=== PATIENT | female | born 1960 | race Caucasian/White ===

== ENCOUNTER 2016-07-06 09:07 | Inpatient (IN) | payer BC ==
[2016-07-06] VITALS (22 sets, daily range): BP systolic 79–115; BP diastolic 51–77; PULSE 66–112; TEMP 36.8–36.9; O2SAT 99–100; Ht 170.2 cm; Wt 79.5 kg
[~2016-07-06] VITALS: Ht 170.2 cm; Wt 79.5 kg
[~2016-07-06 09:07] MED LIST: CALC500T83 PO; CHOL1000 PO; MULT-506 PO; TAMO20TA47 PO
[2016-07-06] MEDS ORDERED: LORAZEPAM 1 MG TAB SL STA (09:23)
[2016-07-06 09:49] LABS: BASO % 0.8 %; BASO ABS # 0.06 K/uL (0-0.2); COMPLETE YES; EOS % 25.2 %; HEMATOCRIT 35.2 % (37-47); IG% 0.1 %; LYMPH % 34.5 %; LYMPH ABS # 2.45 K/uL (1.2-3.4); MEAN CELL VOLUME 87.1 fL (80-100); MEAN CORPUSCULAR HEMOGLOBIN 29.7 pg (25-34); MEAN CORPUSCULAR HGB CONC 34.1 g/dl (32-36); MEAN PLATELET VOLUME 9.3 fL (7.4-10.4); MONO % 4.1 %; NEUT % 35.3 %; PLATELET COUNT 303 K/uL (130-400); RED BLOOD COUNT 4.04 M/uL (4.2-5.4)
[2016-07-06 10:05] LABS: INR 0.9 (0.9-1.1)
[2016-07-06 10:07] LABS: BUN/CREATININE RATIO 13.4 (10-20); CALCIUM 9.5 mg/dl (8.5-10.1); CREATININE 0.58 mg/dl (0.60-1.20)
[2016-07-06 10:10] LABS: ALB/GLOB RATIO 0.9 (0.9-2)
--- NOTE | 2016-07-06 10:12 | EMERGENCY ROOM VISIT NOTE ---
History Report prepared by Lissethibdelphine: Daniel Stratton Under the Supervision of: Dr. Lazarus Fontenot M.D. First contact with patient: 09:23 Chief Complaint: VAGINAL BLEEDING Stated Complaint: BLOOD RUNNING FROM VAGINA History of Present Illness The patient is a 55 year old female who presents to the Emergency Room with complaints of persistent vaginal bleeding starting about an hour ago. She has soaked 2 towels in the past hour. She was sitting down and working on a computer when she had a sudden onset of her symptoms. The patient currently denies any pain. She had a hysterectomy 2 weeks ago. The patient currently denies chest pain, shortness of breath, abdominal pain, or any other complaints. Source of History: patient Onset: about an hour ago Position: other (global) Symptom Intensity: No pain currently Quality: other (vaginal bleeding) Timing: other (persistent) Associated Symptoms: No SOB, No abdominal pain, No chest pain Review of Systems See HPI for pertinent positives & negatives. A total of 10 systems reviewed and were otherwise negative. Past Medical & Surgical Medical Problems: (1) Breast cancer (2) Malignant neoplasm of breast (3) Obesity (4) Pseudocholinesterase deficiency Surgical Problems: (1) H/O breast surgery (2) H/O sinus surgery (3) H/O: hysterectomy (4) History of lumpectomy of right breast (5) S/P RUCHI-BSO (6) S/P total knee replacement Family History Patient reports no known family medical history. Social History Smoking Status: Never Smoker Marital Status: Occupation Status: employed Current/Historical Medications Scheduled Calcium (Calcium), 500 MG PO QAM Cholecalciferol (Vitamin D3), 1,000 UNITS PO QAM Ciprofloxacin (Ciprofloxacin HCl), 1 TAB PO Q6H Multivitamin (Multivitamin), 1 TAB PO QAM Tamoxifen (Nolvadex), 20 MG PO QAM Allergies Coded Allergies: Bee Venom (Verified Allergy, Unknown, ANAPHYLACITC RESPONSE, 07/06/16) Amoxicillin (Verified Adverse Reaction, Unknown, NAUSEA, 07/06/16) Clavulanic Acid (Verified Adverse Reaction, Unknown, NAUSEA, 07/06/16) Physical Exam Vital Signs Date Time Temp Pulse Resp B/P Pulse Ox O2 Delivery O2 Flow Rate FiO2 07/06/16 13:00 88 16 123/80 100 07/06/16 11:21 88 16 123/80 100 Room Air 07/06/16 09:29 100 Room Air 07/06/16 09:14 36.5 96 18 141/89 100 Room Air Physical Exam GENERAL: Patient is a healthy-appearing well-nourished HEAD: Normocephalic atraumatic EYES: Ocular movements intact pupils equal and react to light OROPHARYNX mucous membranes are moist no exudates present no erythema or edema present NECK: Supple no nuchal rigidity CHEST: Good equal expansion LUNGS: Clear and equal to auscultation CARDIAC: Normal S1 and S2 ABDOMEN: Soft nontender no guarding BACK: No CVA tenderness PELVIC EXAM: Large amount of blood in the vaginal vault EXTREMITIES: No pain upon palpation normal muscle strength in all groups no clubbing cyanosis or edema NEURO: Patient is following commands is answering questions appropriately. Alert and oriented x3 Cranial Nerves 2-12 grossly intact Medical Decision & Procedures Laboratory Results Test 07/06/16 09:25 07/06/16 15:37 Immature Granulocyte % (Auto) 0.1 % White Blood Count 7.10 K/uL (4.8-10.8) Red Blood Count 4.04 M/uL (4.2-5.4) Hemoglobin 12.0 g/dL (12.0-16.0) Hematocrit 35.2 % (37-47) Mean Corpuscular Volume 87.1 fL (80-100) Mean Corpuscular Hemoglobin 29.7 pg (25-34) Mean Corpuscular Hemoglobin Concent 34.1 g/dl (32-36) Platelet Count 303 K/uL (130-400) Mean Platelet Volume 9.3 fL (7.4-10.4) Neutrophils (%) (Auto) 35.3 % Lymphocytes (%) (Auto) 34.5 % Monocytes (%) (Auto) 4.1 % Eosinophils (%) (Auto) 25.2 % Basophils (%) (Auto) 0.8 % Neutrophils # (Auto) 2.50 K/uL (1.4-6.5) Lymphocytes # (Auto) 2.45 K/uL (1.2-3.4) Monocytes # (Auto) 0.29 K/uL (0.11-0.59) Eosinophils # (Auto) 1.79 K/uL (0-0.5) Basophils # (Auto) 0.06 K/uL (0-0.2) Immature Granulocyte # (Auto) 0.01 K/uL (0.00-0.02) Prothrombin Time 10.0 SECONDS (9.0-12.0) Prothromb Time International Ratio 0.9 (0.9-1.1) Activated Partial Thromboplast Time 26.4 SECONDS (21.0-31.0) Partial Thromboplastin Ratio 1.0 Total Bilirubin 0.2 mg/dl (0.2-1) Aspartate Amino Transf (AST/SGOT) 24 U/L (15-37) Alanine Aminotransferase (ALT/SGPT) 54 U/L (12-78) Alkaline Phosphatase 60 U/L (45-117) Total Protein 7.0 gm/dl (6.4-8.2) Albumin 3.3 gm/dl (3.4-5.0) Globulin 3.7 gm/dl (2.5-4.0) Albumin/Globulin Ratio 0.9 (0.9-2) Bedside Hemoglobin 10.9 g/dl (12.0-16.0) Bedside Hematocrit 32 % (37-47) Bedside Sodium 141 mEq/L (135-144) Bedside Potassium 4.3 mEq/L (3.3-5.0) Bedside Chloride 104 mEq/L (101-112) Bedside Total CO2 26 mEq/l (24-31) Bedside Blood Urea Nitrogen 6 mg/dl (7-18) Bedside Creatinine 0.4 mg/dl (0.6-1.3) Bedside Glucose (other) 150 mg/dl (70-99) Bedside Ionized Calcium (Gopi) 1.30 mmol/l (1.12-1.32) Labs reviewed by ED physician. Medications Administered Medications (Trade) Dose Ordered Sig/Leonela Route Start Time Stop Time Status Last Admin Dose Admin Lorazepam (Ativan Tab) 1 mg NOW STAT SL 07/06/16 09:23 07/06/16 09:25 DC 07/06/16 09:27 1 MG Fentanyl Citrate (Fentanyl Inj) 50 mcg Q5M PRN IV 07/06/16 13:00 07/06/16 18:01 DC 07/06/16 16:55 100 MCG ED Course 922: Past medical records reviewed. The patient was evaluated in room B12B. A complete history and physical examination was performed. Ativan Tab 1 mg SL 1019: I discussed the patient's case with Dr. Prince, OB-BUILDER'S LABOURER with [facility]. She will evaluate the patient and give me her recommendations. 1041: Upon reexamination the patient is resting comfortably. I discussed results and treatment plan with the patient. She verbalizes agreement and understanding. I spoke with Dr. Prince who will take the patient to the OR. Medical Decision Differential diagnosis: Etiologies such as ectopic , dysfunction uterine bleeding, bleeding dyscrasia, trauma, infection, as well as others were entertained. This is a 55-year-old female who presents emergency department with a large amount of vaginal bleeding status post hysterectomy done 2 weeks ago. An IV was established, the patient's hemoglobin is 12.2 however there is a moderate amount of blood and the patient has been soaking towels since this started. I immediately contacted gynecology after the patient's exam. She was taken immediately to the operating room. The patient was given 1 mg of Ativan. Repeat examination revealed improvement patient's symptoms. The patient was typed and screened. Consults Time Called: 1010 Consulting Physician: Dr. Prince, OB-BUILDER'S LABOURER with [facility] Returned Call: 1019 I discussed the patient's case with Dr. Prince OB-BUILDER'S LABOURER with [facility]. She will evaluate the patient and give me her recommendations. Impression Primary Impression: Vaginal bleeding Critical Care I have personally spent greater than 30 minutes of critical care time in the direct management of this patient. This includes bedside care, interpretation of diagnostic studies, and testing, discussion with consultants, patient, and family members, and other required patient management activities. This 30 minutes is in excess of all separately billable procedures. Scribe Attestation The scribe's documentation has been prepared under my direction and personally reviewed by me in its entirety. I confirm that the note above accurately reflects all work, treatment, procedures, and medical decision making performed by me. Departure Information Dispostion Being Evaluated By Surgeon Prescriptions Ciprofloxacin (Ciprofloxacin HCl) 250 Mg Tab 1 TAB PO Q6H for 7 Days Prov: Vicki Prince MD 07/06/16 Referrals Venice Johnson M.D.(BUILDER'S LABOURER/OB) (PCP) Patient Instructions My [facility]
--- NOTE | 2016-07-06 11:01 | Medical Consult ---
Consultation Date of Consultation: Jul 06, 2016. Attending Physician: Niki Reason for Consultation: Vaginal bleeding History of Present Illness 55yo with breast cancer, tamoxifen use, EIN, s/p robotic TLH BSO with Dr. Emerson Dueñas on 06/17/16, also s/p normal f/u exam in his office with intact cuff noted . She presents today because she was seated in her home this morning checking email when she felt a gush of blood per vagina. She called Dr. Robledo and was advised to present to ER in [place], but because she was soaking towels with blood they elected to present to local ER instead. She denies dizziness or fatigue, no pain, actually "feels great" though is a bit anxious about the bleeding. Did not have any fever, discharge, pain, or clinical changes leading up to this event in the last few days. No bowel or other "objects" noted to protrude from vagina. No watery fluid, just bright red blood which does clot upon the labia. Family History Patient reports no known family medical history. Social History Smoking Status: Never Smoker Smokeless Tobacco Use: No Alcohol Use: none Drug Use: none Marital Status: Housing Status: lives with significant other Occupation Status: employed Allergies Coded Allergies: Bee Venom (Verified Allergy, Unknown, ANAPHYLACITC RESPONSE, 07/06/16) Amoxicillin (Verified Adverse Reaction, Unknown, NAUSEA, 07/06/16) Clavulanic Acid (Verified Adverse Reaction, Unknown, NAUSEA, 07/06/16) Home Medications tamoxifen use, ca/VitD Review of Systems Constitutional: No fever Respiratory: No shortness of breath Cardiovascular: No chest pain Abdomen: No diarrhea, No nausea, No vomiting Genitourinary - Female: + vaginal bleeding, No dysuria Neurologic: No vertigo, No weakness Endocrine: No fatigue Physical Exam Date Time Temp Pulse Resp B/P Pulse Ox O2 Delivery O2 Flow Rate FiO2 07/06/16 09:29 100 Room Air 07/06/16 09:14 36.5 96 18 141/89 100 Room Air Seated semi-fowlers in NAD, conversing with . Cor RRR Lungs CTAB Abd soft, NT, no masses. : Clotted blood adherent to labia. Speculum exam shows normal external/BUS, normal vaginal morales. Cuff reveals purple-blue suture at the R angle and across the middle of the cuff. The L angle of the cuff has no suture and is open enough to admit the head of a rectal swab, though there is a bed of clean- looking granulation tissue at the base of this approx [id number] opening, and bowel / intraperitoneal contents are nonvisible. The edges of the vaginal epithelium, where , are bleeding. The edges and remainder of cuff show no erythema or edema whatsoever. Laboratory Results Last 24 Hours Test 07/06/16 09:25 White Blood Count 7.10 K/uL Red Blood Count 4.04 M/uL Hemoglobin 12.0 g/dL Hematocrit 35.2 % Mean Corpuscular Volume 87.1 fL Mean Corpuscular Hemoglobin 29.7 pg Mean Corpuscular Hemoglobin Concent 34.1 g/dl Platelet Count 303 K/uL Mean Platelet Volume 9.3 fL Neutrophils (%) (Auto) 35.3 % Lymphocytes (%) (Auto) 34.5 % Monocytes (%) (Auto) 4.1 % Eosinophils (%) (Auto) 25.2 % Basophils (%) (Auto) 0.8 % Neutrophils # (Auto) 2.50 K/uL Lymphocytes # (Auto) 2.45 K/uL Monocytes # (Auto) 0.29 K/uL Eosinophils # (Auto) 1.79 K/uL Basophils # (Auto) 0.06 K/uL RDW Standard Deviation 41.3 fL RDW Coefficient of Variation 12.8 % Immature Granulocyte % (Auto) 0.1 % Immature Granulocyte # (Auto) 0.01 K/uL Prothrombin Time 10.0 SECONDS Prothromb Time International Ratio 0.9 Activated Partial Thromboplast Time 26.4 SECONDS Partial Thromboplastin Ratio 1.0 Sodium Level 140 mmol/L Potassium Level 4.0 mmol/L Chloride Level 105 mmol/L Carbon Dioxide Level 24 mmol/L Anion Gap 11.0 mmol/L Blood Urea Nitrogen 8 mg/dl Creatinine 0.58 mg/dl Est Creatinine Clear Calc Drug Dose 119.0 ml/min Estimated GFR () 120.3 Estimated GFR (Non- 103.8 BUN/Creatinine Ratio 13.4 Random Glucose 121 mg/dl Calcium Level 9.5 mg/dl Total Bilirubin 0.2 mg/dl Aspartate Amino Transf (AST/SGOT) 24 U/L Alanine Aminotransferase (ALT/SGPT) 54 U/L Alkaline Phosphatase 60 U/L Total Protein 7.0 gm/dl Albumin 3.3 gm/dl Globulin 3.7 gm/dl Albumin/Globulin Ratio 0.9 Assessment & Plan A: Partial cuff dehiscence of the vaginal cuff, just shy of 3 weeks postoperative, without evidence of cuff cellulitis. P: Patient discussed with Dr. Emerson Robledo. He is in agreement with plan for return to OR here at [facility] to allow placement of O-vicryl figure-eight sutures to reapproximate the disrupted edges. He further recommends that a preventive course of ciprofloxacin be given x7 days. He would like the patient to return to his office in 1-2 weeks to follow up from this. She is to remain off work until then (was previously planning to return today).
[2016-07-06] MEDS ORDERED: MIDAZOLAM HCL 1 MG/ML 2ML VIAL ONE ×3 (12:57→15:27)
[2016-07-06] MEDS ORDERED: ONDANSETRON INJ 2 MG/ML 2 ML VIAL ONE (12:57)
[2016-07-06] MEDS ORDERED: PROPOFOL IV EMULSION 10 MG/ML 20 ML VIAL IV ONE ×2 (12:57→13:51)
[2016-07-06] MEDS ORDERED: DEXAMETHASONE SOD INJ 4 MG/ML VIAL ONE (12:57)
[2016-07-06] MEDS ORDERED: FENTANYL CITRATE INJ 50 MCG/1 ML 2 ML VIAL ONE (12:57)
[2016-07-06] MEDS ORDERED: LIDOCAINE HCL 2% 2 ML VIAL (20MG/ML) ONE (12:57)
[2016-07-06] MEDS ORDERED: ATROPINE SULFATE 0.1 MG/ML 5ML SYR IV PRN (13:00)
[2016-07-06] MEDS ORDERED: FENTANYL CITRATE INJ 50 MCG/1 ML 2 ML VIAL IV PRN ×2 (13:00→16:45)
[2016-07-06] MEDS ORDERED: ONDANSETRON INJ 2 MG/ML 2 ML VIAL IV PRN ×2 (13:00→14:00)
[2016-07-06] MEDS ORDERED: EpHEDrine SULFATE INJ 50 MG/ML AMP IV PRN (13:00)
[2016-07-06] MEDS ORDERED: ROCURONIUM BROMID 50MG/5ML SYR ONE (13:22)
[2016-07-06] MEDS ORDERED: SUCCINYLCHOLINE CHLORIDE 20 MG/ML 10 ML VIAL IV ONE (13:22)
[2016-07-06] MEDS ORDERED: SODIUM CHLORIDE 0.9% 1000ML 1,000 ML IV SCH (13:52)
--- NOTE | 2016-07-06 13:54 | [facility] Post Operative Brief Note ---
Immediate Operative Summary Operative Date Jul 06, 2016. Pre-Operative Diagnosis Vaginal cuff dehisence Post-Operative Diagnosis Same as pre-operaive Procedure(s) Performed Reclosure of vaginal cuff dehisence Surgeon Dr. Vicki Prince MD Quality Manager Surgeon(s) None Estimated Blood Loss 10ml Findings Vaginal cuff L angle to midpoint of cuff open approx 1cm wide and 1cm deep. Active bleeding from epithelial edges. Base of wound filled with granulation tissue. No opening to intraperitoneal cavity was appreciated. Specimens None per surgeon Complication(s) None Disposition Recovery Room / PACU
[2016-07-06] MEDS ORDERED: CPR250 PO (13:57)
[2016-07-06] MEDS ORDERED: OXYCODONE/ACETAMINOPHEN 5-325 TAB PO PRN ×2 (14:00)
[2016-07-06] MEDS ORDERED: PROMETHAZINE HCL INJ 25 MG in SODIUM CHLORIDE 0.9% 50ML 50 ML IV PRN (14:00)
[2016-07-06] MEDS ORDERED: IBUPROFEN 600 MG TAB PO PRN (14:00)
--- NOTE | 2016-07-06 14:01 | Discharge Instructions ---
Discharge Instructions Visit Reason for Visit: Blood Running From Vagina Discharge Discharge Diagnosis / Problem: Vaginal cuff dehiscence Discharge Goals Goal(s): Specific goals Activity Recommendations Activity Limitations: per Instructions/Follow-up section Lifting Limitations: no more than 10 pounds May Resume Sexual Activity: after follow-up appointment Anesthesia . Post Anesthesia Instructions: If you have had General Anesthesia or IV Sedation: * Do not drive today. * Resume driving when surgeon permits. * Do not make important decisions or sign legal documents today. * Call surgeon for: 1. Temperature elevations greater than 101 degrees F. 2. Uncontrollable pain. 3. Excessive bleeding. 4. Persistent nausea and vomiting. 5. Medication intolerance (nausea, vomiting or rash). * For nausea and vomiting use only clear liquids such as: tea, soda, bouillon until nausea subsides, then gradually increase diet as tolerated. * If you have any concerns or questions, call your surgeon's office. If physician is unavailable and it is an emergency, call 911 or go to the nearest emergency room. . Instructions / Follow-Up Instructions / Follow-Up ACTIVITY RECOMMENDATIONS: Activity: * Stay off work until seen by Dr. Gutierrez for follow up in 1-2 weeks. * Light daily activities at home are fine. Do NOT place anything in the vagina until after cleared by Dr. Gutierrez Bathing: * Showers or baths are permissible. Do not swim or use a hot tub until cleared at your post op visit. Vaginal Discharge: * Odorous, blood-tinged or brownish discharge may be present for one to three weeks after surgery. * Pads should be used and not tampons. * Stitches may be passed vaginally. * If bleeding becomes free flowing, notify our office at . Temperature: * Any fever above 100.4 degrees F should be reported to our office at . WE WISH YOU A SPEEDY RECOVERY! Diet Recommendations Recommended Home Diet: resume previous diet Procedures Procedures Performed: Reclosure of vaginal cuff dehisence Pending Studies Studies pending at discharge: no Medical Emergencies . Who to Call and When: Medical Emergencies: If at any time you feel your situation is an emergency, please call 911 immediately. . Non-Emergent Contact Non-Emergency issues call your: Primary Care Provider . . "Provider Documentation" section prepared by Vicki Prince.
[2016-07-06] MEDS ORDERED: GLYCOPYRROLATE INJ 0.2 MG/ML VIAL ONE (14:40)
[2016-07-06] MEDS ORDERED: NEOSTIGMINE METHYLSULFATE 5 MG/5 ML SYR ONE (14:40)
--- NOTE | 2016-07-06 15:41 | Progress Note ---
Progress Note I received a phone call from Dr. Koehler, anesthesia, notifying me that after approximately 1 hour of attempts to awaken Ranjana postoperatively she was not able to be extubated. 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 Dr. Koehler suspects that she has previously undiagnosed pseudocholinesterase deficiency. Though she has had surgery here before, she was not given succinylcholine during those surgeries, and she likely had a nondepolarizing agent used in [place] at the time of her hysterectomy as well. The plan at this time is to maintain intubation, ventilation and sedation until such time as Ranjana has metabolized the succinylcholine and can resume breathing on her own. She has been given some anxiolytic and amnestic agents in hopes of minimizing any memories of pain or discomfort during her postoperative awareness. Consideration may also be given to brain imaging to r/ o infarction, but her clinical picture is certainly more consistent with the pseudocholinesterase deficiency at this time. She will be [place] [facility] [place] as her usual PCP is a [facility] physician, and consult with the fish bin tender service has been obtained for management of her vent and sedation. All of the above have been explained to the patient's , Connor, by myself and Drs. Koehler and Bowen as well.
--- NOTE | 2016-07-06 15:43 | Anesthesiology Progress Note ---
Anesthesia Progress Note Date of Service Jul 06, 2016. Progress Notes Pt is a 55F who underwent a vaginal cuff repair today under general anesthesia. The pt had a vaginal hysterectomy performed 2 weeks ago at [facility]. The pt has a h/o arthritis and breast ca, but is otherwise healthy. The pt received a general anesthetic with an endotracheal tube. Pt was given 100mg of succinylcholine with 8mg of rocuronium for a defasciculating dose. The pt had stable vital signs throughout the procedure. The pt was unable to be extubated 2/2 residual paralysis. The pt was noted to only have 1 twitch using a TOF nerve stimulator. The pt was given 5mg of neostigmine with minimal effect. Her pupils were equally reactive to light. The pt was spontaneously breathing with shallow respirations, with tidal volumes 50-75mL. She was able to move all four extremities with poor strength. It was presumed that the pt may have pseudo cholinesterase deficiency. The pt was given midazolam to provide amnesia. Pt was administered inhalational anesthetic agents to maintain amnesia. It was decided that the pt be transferred to ICU until her strength improved. I spoke with Dr. Prince and Dr. Agustin about the situation. Dr. Prince, Dr. Agustin, and I spoke with the pt's , and we notified him of the events. We updated him on the pt's condition. The pt is otherwise stable. The pt will be in the ICU for further care.
[2016-07-06] MEDS ORDERED: PROPOFOL IV EMULSION 10 MG/ML 100 ML VIAL IV ONE (15:59)
[2016-07-06 16:32] LABS: ISTAT CREATININE 0.4 mg/dl (0.6-1.3); ISTAT HEMOGLOBIN 10.9 g/dl (12.0-16.0); ISTAT IONIZED CALCIUM 1.3 mmol/l (1.12-1.32)
[2016-07-06] MEDS ORDERED: PROPOFOL IV EMULSION 10 MG/ML 100 ML VIAL IV PRN (16:45)
[2016-07-06] MEDS ORDERED: MIDAZOLAM HCL 5 MG/ML 1 ML VIAL IV PRN (16:45)
--- NOTE | 2016-07-06 16:59 | Anesthesiology Progress Note ---
Anesthesia Post Op Note Date & Time Jul 06, 2016 at 16:58 Vital Signs Pain Intensity: 0 Vital Signs Past 12 Hours Date Time Temp Pulse Resp B/P Pulse Ox O2 Delivery O2 Flow Rate FiO2 07/06/16 16:08 60 07/06/16 13:00 88 16 123/80 100 07/06/16 11:21 88 16 123/80 100 Room Air 07/06/16 09:29 100 Room Air 07/06/16 09:14 36.5 96 18 141/89 100 Room Air Notes Mental Status: see Notes Pt Amnestic to Procedure: Yes Nausea / Vomiting: adequately controlled Pain: adequately controlled Airway Patency, RR, SpO2: stable & adequate BP & HR: stable & adequate Hydration State: stable & adequate See attached anesthesia progress note for further details
[2016-07-06] MEDS ORDERED: NURSING VERBAL MED ORDER ONE ×2 (17:00→21:00)
--- NOTE | 2016-07-06 17:10 | Critical Care Consultation ---
Critical Care Consultation Date of Consultation: Jul 06, 2016. Attending Physician: Anh Huertas M.D. Reason for Consultation: difficult extubation requiring ongoing ventilation assistance History of Present Illness This is a 55 yo f that is presenting to us having difficulty with extubation this afternoon. This patient has a h/o breast cancer and currently being treated with Tamoxifin. She recently had a TAHBSO on 06/17/[address] Robledo at [facility] without any anesthesia complications. She was since in the office for follow up post TAHBSO and the cuff was in fact intact on Jul 08 2016. Today, while she was sitting at work, she had a sudden onset of vaginal bleeding 1 hour SCHEDULE CLERK to the ED. She called her surgeon Dr Robledo who at first thought she should come to [place] but because of the extent of the bleeding she was told to come to [facility]. Dr Prince was referred to evaluate in the ED and she was noted to have dehiscence of the vaginal cuff. She was promptly brought to the OR and it was surgically sutured and plan was to d/c on Count Includes [facility].She was given 100 mg of Succinylcholine and general anesthesia for the procedure. During extubation, she would have tachycardia and hypertension when the general anesthetic would wear off and no movement/ poor tidal volumes. She would then have to transiently be placed on general again. Extubation was attempted for an hour and ICU clinical documentation clerk was consulted and it was decided that the patient would be transferred to the ICU to wean her off of ventilation. During her previous surgeries it is unknown if succinylcholine was used during these procedures. Also, according to chart review, she was feeling general well without chest pain or SOB. She also did not have any trauma to the vaginal area or insertion of a foreign object. Past Medical/Surgical History [facility] Family History Patient reports no known family medical history. Social History Smoking Status: Never Smoker Smokeless Tobacco Use: No Alcohol Use: none Drug Use: none Marital Status: Housing Status: lives with significant other Occupation Status: employed Allergies Coded Allergies: Bee Venom (Verified Allergy, Unknown, ANAPHYLACITC RESPONSE, 07/06/16) Amoxicillin (Verified Adverse Reaction, Unknown, NAUSEA, 07/06/16) Clavulanic Acid (Verified Adverse Reaction, Unknown, NAUSEA, 07/06/16) Home Medications Scheduled Calcium (Calcium), 500 MG PO QAM Cholecalciferol (Vitamin D3), 1,000 UNITS PO QAM Ciprofloxacin (Ciprofloxacin HCl), 1 TAB PO Q6H Multivitamin (Multivitamin), 1 TAB PO QAM Tamoxifen (Nolvadex), 20 MG PO QAM Current Inpatient Medications Current Inpatient Medications Medications (Trade) Dose Ordered Sig/Leonela Route Start Time Stop Time Status Last Admin Dose Admin Fentanyl Citrate (Fentanyl Inj) 50 mcg Q5M PRN IV 07/06/16 13:00 07/06/16 18:00 07/06/16 16:55 100 MCG Ondansetron HCl (Zofran Inj) 4 mg ONE PRN IV 07/06/16 13:00 07/06/16 18:00 Ephedrine Sulfate (EpHEDrine SULFATE INJ) 5 mg Q5M PRN IV 07/06/16 13:00 07/06/16 18:00 Atropine Sulfate 0.5 mg 0.5 mg Q1M PRN IV 07/06/16 13:00 07/06/16 18:00 Sodium Chloride (Nss 1000ml) 1,000 ml @ 125 mls/hr Q8H IV 07/06/16 13:52 07/07/16 13:51 Ondansetron HCl (Zofran Inj) 4 mg Q6H PRN IV 07/06/16 14:00 07/07/16 13:59 Ibuprofen (Motrin Tab) 600 mg Q6H PRN PO 07/06/16 14:00 07/07/16 13:59 Oxycodone/ Acetaminophen (Percocet 5-325mg Tab) 1 tab Q4H PRN PO 07/06/16 14:00 07/07/16 13:59 Oxycodone/ Acetaminophen 2 tab 2 tab Q4H PRN PO 07/06/16 14:00 07/07/16 13:59 Promethazine HCl/ Sodium Chloride (Phenergan Inj/ Nss 50ml) 51 ml @ 204 mls/hr Q4H PRN IV 07/06/16 14:00 07/07/16 13:59 Miscellaneous Information (Nursing Verbal Med Order) 1 ea ONE ONCE N/A 07/06/16 17:00 07/06/16 17:01 UNV Fentanyl Citrate (Fentanyl Inj) 25 mcg UD PRN IV 07/06/16 16:45 07/20/16 16:44 UNV Midazolam HCl (Versed Inj) 2 mg Q2H PRN IV 07/06/16 16:45 08/05/16 16:44 UNV Propofol (Diprivan Iv Emulsion 100ml Vial) 1 dose UD PRN IV 07/06/16 16:45 07/09/16 16:44 UNV Review of Systems Unable to complete because of sedation Physical Exam Date Time Temp Pulse Resp B/P Pulse Ox O2 Delivery O2 Flow Rate FiO2 07/06/16 16:08 60 07/06/16 13:00 88 16 123/80 100 07/06/16 11:21 88 16 123/80 100 Room Air 07/06/16 09:29 100 Room Air 07/06/16 09:14 36.5 96 18 141/89 100 Room Air General Appearance: WD/WN, no apparent distress Head: normocephalic, atraumatic Eyes: normal inspection ENT: normal ENT inspection Neck: supple, trachea midline Respiratory/Chest: lungs clear, normal breath sounds, no respiratory distress, no accessory muscle use Cardiovascular: regular rate, rhythm, no murmur Abdomen/GI: normal bowel sounds, soft Back: normal inspection Extremities/Musculoskelatal: normal inspection, no pedal edema Neurologic/Psych: + pertinent finding (under sedation, responds to voice) Skin: normal color, warm/dry, no rash Lymphatic: no adenopathy Laboratory Results Last 24 Hours Test 07/06/16 09:25 07/06/16 15:37 07/06/16 16:18 White Blood Count 7.10 K/uL Red Blood Count 4.04 M/uL Hemoglobin 12.0 g/dL Hematocrit 35.2 % Mean Corpuscular Volume 87.1 fL Mean Corpuscular Hemoglobin 29.7 pg Mean Corpuscular Hemoglobin Concent 34.1 g/dl Platelet Count 303 K/uL Mean Platelet Volume 9.3 fL Neutrophils (%) (Auto) 35.3 % Lymphocytes (%) (Auto) 34.5 % Monocytes (%) (Auto) 4.1 % Eosinophils (%) (Auto) 25.2 % Basophils (%) (Auto) 0.8 % Neutrophils # (Auto) 2.50 K/uL Lymphocytes # (Auto) 2.45 K/uL Monocytes # (Auto) 0.29 K/uL Eosinophils # (Auto) 1.79 K/uL Basophils # (Auto) 0.06 K/uL RDW Standard Deviation 41.3 fL RDW Coefficient of Variation 12.8 % Immature Granulocyte % (Auto) 0.1 % Immature Granulocyte # (Auto) 0.01 K/uL Prothrombin Time 10.0 SECONDS Prothromb Time International Ratio 0.9 Activated Partial Thromboplast Time 26.4 SECONDS Partial Thromboplastin Ratio 1.0 Sodium Level 140 mmol/L Potassium Level 4.0 mmol/L Chloride Level 105 mmol/L Carbon Dioxide Level 24 mmol/L Anion Gap 11.0 mmol/L 17.0 mmol/L Blood Urea Nitrogen 8 mg/dl Creatinine 0.58 mg/dl Est Creatinine Clear Calc Drug Dose 119.0 ml/min Estimated GFR () 120.3 Estimated GFR (Non- 103.8 BUN/Creatinine Ratio 13.4 Random Glucose 121 mg/dl Calcium Level 9.5 mg/dl Total Bilirubin 0.2 mg/dl Aspartate Amino Transf (AST/SGOT) 24 U/L Alanine Aminotransferase (ALT/SGPT) 54 U/L Alkaline Phosphatase 60 U/L Total Protein 7.0 gm/dl Albumin 3.3 gm/dl Globulin 3.7 gm/dl Albumin/Globulin Ratio 0.9 Bedside Hemoglobin 10.9 g/dl Bedside Hematocrit 32 % Bedside Sodium 141 mEq/L Bedside Potassium 4.3 mEq/L Bedside Chloride 104 mEq/L Bedside Total CO2 26 mEq/l Bedside Blood Urea Nitrogen 6 mg/dl Bedside Creatinine 0.4 mg/dl Bedside Glucose (other) 150 mg/dl Bedside Ionized Calcium (Gopi) 1.30 mmol/l Assessment & Plan 1. 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 vaginal cuff dehiscence POD0 3. H/O breast carcinoma, currently treated with tamoxifin NVS - Currently under sedation with Propofol - Versed for increased agitation- prn - fentanyl for pain control - prn CVS - Tachycardic but may be secondary to anxiety, will continue to monitor RVS - CXR ordered GI - Protonix while patient mechanically ventilated RENAL - UA pending - BMP in am - 1/2 NSS KCL ID - Cipro HEME - CPK ordered - CBC tomorrow am considering recent blood loss - ref pseudocholinesterase, total serum and dibucaine inhibition DVT Prophylaxis -lovenox FULL CODE patient met weaning protocol : RSBI < 105, able to lift head off of bed > 5 sec, appropriate responds to commands, moves all limbs. extubation completed and patient tolerated well Resident Physician Supervision Note: Dr. Blas was resident physician during care of patient. I separately evaluated patient and did history and exam. I discussed the case with the resident and generally agree with the findings and plan. Discussed the case with the patient's . I have personally spent 45 minutes of critical care time in the direct management of this patient. This is a life/limb threatening event. This includes time spent evaluating patient, direct bedside care, chart review, placing orders, interpretation of diagnostic studies, discussion with consultants, patient, and family members, as well as other required patient management activities. This time is exclusive of all separately billable procedures, and teaching time and separate from and in addition to any other critical care service time. Documented By: Gonzalo Agustin DO
[2016-07-06] MEDS ORDERED: HYDROmorphone INJ 1 MG/ML SYR IV PRN (17:30)
[2016-07-06 17:34] LABS: ISTAT ALLEN TEST Pass; ISTAT ARTERIAL BLOOD GAS HCO3 24 meq/L (19-24); ISTAT ARTERIAL BLOOD GAS PCO2 45 mmHg (35-46); ISTAT ARTERIAL BLOOD GAS PO2 156 mmHg (80-95); ISTAT ARTERIAL BLOOD GAS pH 7.33 (7.35-7.45); ISTAT CARBON DIOXIDE 25 mEq/l (24-31); ISTAT DELIVERY SYSTEM Ventilator; ISTAT FIO2 40 %; ISTAT PEEP 5; ISTAT RATE 12; ISTAT SITE L Radial; VE 6; Vt 450
[2016-07-06] MEDS: SODIUM CHLOR 0.45% + 20MEQ KCL 1,000 ML IV SCH ×2 (17:36→17:48)
[2016-07-06] MEDS ORDERED: CIPROFLOXACIN / D5W 200 MG in PREMIXED IN D5W 100 ML IV SCH (18:00)
--- NOTE | 2016-07-06 18:03 | DIAGNOSTIC IMAGING REPORT ---
SINGLE VIEW CHEST CLINICAL HISTORY: Postoperative examination. Intubation. FINDINGS: An AP, portable, upright chest radiograph is compared to study dated 03/17/2015. The examination is degraded by portable technique and patient rotation. An endotracheal tube has been placed. The tip of the catheter projects 5 cm above the kurt. The cardiomediastinal silhouette is unremarkable. There is bibasilar atelectasis. No airspace consolidation or large pleural effusion is identified. No pneumothorax is seen. The skeletal structures are osteopenic. The bony thorax is grossly intact. Surgical clips project over the right breast. IMPRESSION: 1. An endotracheal tube has been placed. The tip projects at the thoracic inlet approximately 5 cm above the kurt. 2. No airspace consolidation or large pleural effusion is identified. Electronically signed by: Antoine Perez M.D. 07/06/2016 6:01 PM Dictated Date/Time: 07/06/2016 5:59 PM
--- NOTE | 2016-07-06 18:07 | History and Physical ---
History & Physical Date & Time of Service: Jul 06, 2016 at 17:29 Chief Complaint: Pseudocholinesterase Deficiency Primary Care Physician: Venice Johnson M.D.([employer]/OB) History of Present Illness Source: clinic records, hospital records History obtained from clinic records and hospital chart since pt is intubated on vent support and sedated. 55 yo female with PMH of breast cancer and currently on tamoxifen recently gannon a TAHBSO done on 06/17/[address] Robledo at [facility] with no complication. She had a follow up appointment on 06/28/16 and the cuff was checked at that time it was intact. Today while she was at work, she noticed a gush of blood coming from her vagina. She called her surgeon Dr Robledo who advised her to come to [place], but because she was bleeding a lot, she was told to go to the closest ER. Dr Prince was referred and evaluated her in the ED and was noted dehiscence of the vaginal cuff. She went to the OR to repair the edge of the cuff. After the procedure she was unable to come off the ventilation due to tachycardia and hypertension. She had poor TV when tried to extubate. She was sent to the ICU to monitor and try to extubate later. Past Medical/Surgical History Medical Problems: (1) Breast cancer Status: Resolved (2) Obesity Status: Chronic Surgical Problems: (1) H/O breast surgery Status: Resolved (2) H/O: hysterectomy Status: Resolved Family History Patient reports no known family medical history. Social History Smoking Status: Never Smoker Smokeless Tobacco Use: No Alcohol Use: none Drug Use: none Marital Status: Occupational Status: employed Multi-Drug Resistant Organisms History of MDRO: No Allergies Coded Allergies: Bee Venom (Verified Allergy, Unknown, ANAPHYLACITC RESPONSE, 07/06/16) Amoxicillin (Verified Adverse Reaction, Unknown, NAUSEA, 07/06/16) Clavulanic Acid (Verified Adverse Reaction, Unknown, NAUSEA, 07/06/16) Home Medications Scheduled Calcium (Calcium), 500 MG PO QAM Cholecalciferol (Vitamin D3), 1,000 UNITS PO QAM Ciprofloxacin (Ciprofloxacin HCl), 1 TAB PO Q6H Multivitamin (Multivitamin), 1 TAB PO QAM Tamoxifen (Nolvadex), 20 MG PO QAM Review of Systems Unable to obtain because pt is sedated and on Ventilation support. Physical Exam Vital Signs Date Time Temp Pulse Resp B/P Pulse Ox O2 Delivery O2 Flow Rate FiO2 07/06/16 16:30 36.8 69 12 86/55 100 Mechanical Ventilator 60 07/06/16 16:15 36.8 112 12 112/80 100 Mechanical Ventilator 60 07/06/16 16:08 60 07/06/16 16:00 36.8 128 12 125/86 100 Mechanical Ventilator 60 07/06/16 13:00 88 16 123/80 100 07/06/16 11:21 88 16 123/80 100 Room Air 07/06/16 09:29 100 Room Air 07/06/16 09:14 36.5 96 18 141/89 100 Room Air General Appearance: + pertinent finding (sedated, intubated on vent support) Head: normocephalic Eyes: normal inspection, PERRL ENT: normal ENT inspection Neck: no JVD Respiratory/Chest: lungs clear Cardiovascular: no edema, no JVD, no murmur Abdomen/GI: normal bowel sounds Back: normal inspection Extremities/Musculoskelatal: no pedal edema Neurologic/Psych: + pertinent finding (sedated with propofol) Skin: warm/dry Diagnostics Laboratory Results Results Past 24 Hours Test 07/06/16 09:25 07/06/16 15:37 07/06/16 16:57 Range/Units White Blood Count 7.10 4.8-10.8 K/uL Red Blood Count 4.04 4.2-5.4 M/uL Hemoglobin 12.0 12.0-16.0 g/dL Hematocrit 35.2 37-47 % Mean Corpuscular Volume 87.1 80-100 fL Mean Corpuscular Hemoglobin 29.7 25-34 pg Mean Corpuscular Hemoglobin Concent 34.1 32-36 g/dl Platelet Count 303 130-400 K/uL Mean Platelet Volume 9.3 7.4-10.4 fL Neutrophils (%) (Auto) 35.3 % Lymphocytes (%) (Auto) 34.5 % Monocytes (%) (Auto) 4.1 % Eosinophils (%) (Auto) 25.2 % Basophils (%) (Auto) 0.8 % Neutrophils # (Auto) 2.50 1.4-6.5 K/uL Lymphocytes # (Auto) 2.45 1.2-3.4 K/uL Monocytes # (Auto) 0.29 0.11-0.59 K/uL Eosinophils # (Auto) 1.79 0-0.5 K/uL Basophils # (Auto) 0.06 0-0.2 K/uL RDW Standard Deviation 41.3 36.4-46.3 fL RDW Coefficient of Variation 12.8 11.5-14.5 % Immature Granulocyte % (Auto) 0.1 % Immature Granulocyte # (Auto) 0.01 0.00-0.02 K/uL Prothrombin Time 10.0 9.0-12.0 SECONDS Prothromb Time International Ratio 0.9 0.9-1.1 Activated Partial Thromboplast Time 26.4 21.0-31.0 SECONDS Partial Thromboplastin Ratio 1.0 Sodium Level 140 136-145 mmol/L Potassium Level 4.0 3.5-5.1 mmol/L Chloride Level 105 98-107 mmol/L Carbon Dioxide Level 24 21-32 mmol/L Anion Gap 11.0 17.0 16-25 mmol/L Blood Urea Nitrogen 8 7-18 mg/dl Creatinine 0.58 0.60-1.20 mg/dl Est Creatinine Clear Calc Drug Dose 119.0 ml/min Estimated GFR () 120.3 Estimated GFR (Non- 103.8 BUN/Creatinine Ratio 13.4 10-20 Random Glucose 121 70-99 mg/dl Calcium Level 9.5 8.5-10.1 mg/dl Total Bilirubin 0.2 0.2-1 mg/dl Aspartate Amino Transf (AST/SGOT) 24 15-37 U/L Alanine Aminotransferase (ALT/SGPT) 54 12-78 U/L Alkaline Phosphatase 60 45-117 U/L Total Protein 7.0 6.4-8.2 gm/dl Albumin 3.3 3.4-5.0 gm/dl Globulin 3.7 2.5-4.0 gm/dl Albumin/Globulin Ratio 0.9 0.9-2 Bedside Hemoglobin 10.9 12.0-16.0 g/dl Bedside Hematocrit 32 37-47 % Bedside Sodium 141 135-144 mEq/L Bedside Potassium 4.3 3.3-5.0 mEq/L Bedside Chloride 104 101-112 mEq/L Bedside Total CO2 26 24-31 mEq/l Bedside Blood Urea Nitrogen 6 7-18 mg/dl Bedside Creatinine 0.4 0.6-1.3 mg/dl Bedside Glucose (other) 150 70-99 mg/dl Bedside Ionized Calcium (Gopi) 1.30 1.12-1.32 mmol/l Total Creatine Kinase 54 26-192 U/L Microbiology Results 07/06/16 MRSA DNA Surveillance Screen, Received Pending Diagnostic Radiology Xray reviewed by me shown ET tube in good position. Impression Assessment and Plan Vaginal Bleeding Related to dehiscence of the vaginal cuff. On cipro Post op day 0 OBGYN on board Will monitor h/h Possible Pseudocholinesterase deficiency Unable to extubate on vent support and sedated with propofol and versed for agitation Fentanyl prn for pain will try to wean off the vent tomorrow Deposit Refund Clerk Dr. Agustin on board H/O breast carcinoma, currently treated with tamoxifin Stable Tachycardia Possible related to anxiety will continue monitor HR GI -on Protonix DVT Prophylaxis -will start on SCDs for now due to surgery and vaginal bleeding CODE Status FULL CODE Level of Care Critical Care Resuscitation Status FULL RESUSCITATION VTE Prophylaxis VTE Risk Assessment Done? Y/N: Yes Risk Level: Moderate Given or contraindicated: SCD's
--- NOTE | 2016-07-06 20:15 | Progress Note ---
Progress Note Patient has been successfully extubated by ICU team. I met with her (and her who subsequently joined us) in the ICU room. All questions were answered, our presumed diagnosis was explained to her, and the plan of discharging her in the morning if she does well was discussed. She is requesting ativan to help with anxiety and allow her to sleep tonight, but otherwise doing well.
[2016-07-06] MEDS ORDERED: INFLUENZA ADMINISTRATION CHARGE ONE (20:45)
[2016-07-06] MEDS ORDERED: PNEUMOCOCCAL POLYSACCHARIDES 25 MCG/0.5 ML VIAL/SYR IM. ONE (20:45)
[2016-07-06] MEDS ORDERED: INFLUENZA VIRUS QUAD VACCINE 0.5 ML SYR IM. ONE (20:45)
[2016-07-06] MEDS ORDERED: PNEUMOCOCCAL ADMINISTRATION CHARGE ONE (20:45)
[2016-07-06] MEDS: LORAZEPAM 0.5 MG TAB PO PRN (21:20)
[2016-07-07] VITALS (15 sets, daily range): BP systolic 88–104; BP diastolic 46–68; PULSE 59–91; TEMP 36.8–37; O2SAT 97–100
--- NOTE | 2016-07-07 00:03 | OPERATIVE REPORT ---
DATE OF OPERATION: 07/06/2016 PREOPERATIVE DIAGNOSIS: Vaginal cuff dehiscence. POSTOPERATIVE DIAGNOSIS: Same. PROCEDURE: Reclosure of vaginal cuff dehiscence. SURGEON: Dr. Prince. EDUCATION DIRECTOR: None. ESTIMATED BLOOD LOSS: 10 mL FINDINGS: Vaginal cuff from the left angle to the midpoint of the cuff open approximately 1 cm wide and 1 cm deep with active bleeding from the vaginal epithelial edges. The base of this wound was filled with granulation tissue and no visible opening to the intraperitoneal cavity was appreciated. SPECIMENS: None. COMPLICATIONS: None. DISPOSITION: Stable in operating room. DESCRIPTION: Ranjana is a 55-year-old who recently underwent a total laparoscopic hysterectomy and BSO on 06/17/2015 in [facility]. She was seen by her surgeon, Dr. Marinelli, on 06/28/2016, at which time her cuff was felt to be intact and she was cleared to return to work on 07/06/2016. On the morning of 07/06/2016, she underwent a spontaneous pop and gush of blood from the vagina and presented to [facility] ER. I examined her in our ER and discovered the dehiscence of the left angle of the vaginal cuff as noted above. This was discussed with her surgeon, Dr. Marinelli, and he agreed that she required repair of her dehiscence which was to be done here at [facility]. She was brought to the operating room, anesthesia was provided by Dr. Koehler, the patient was placed in the dorsal lithotomy position with Yellofin stirrups, prepped and draped in standard sterile fashion, and a hard timeout was taken prior to proceeding. The bladder was emptied of urine via straight catheterization. Jackson and weighted specula were introduced into the vagina, allowing visualization of the cuff. As seen in the Emergency Department, a blue/purple suture was seen in the cuff on the right side of the angle to the midpoint of the cuff which remained well approximated. No suture was seen from the midpoint point to the left angle of the cuff where the epithelial edges were pulled approximately 1 cm apart and were bleeding freely. A DeBakey forcep was used with a 4 x 4 sponge to blot away the bleeding and visualize the edges. Granulation tissue bed remained visible across the entire opened area, and at no time was I able to identify any opening directly into the peritoneal cavity. The angle of the epithelium was grasped with an Allis, and five [id number] interrupted sutures were made with 0-vicryl popoffs to re-close the epithelium. Hemostasis was achieved. Instruments were removed and bimanual exam confirmed that the cuff was solidly closed without residual defect all the way across. The patient was in stable condition at the time I left the operating room to discuss the surgical procedure with her in waiting area. I attest to the content of the Intraoperative Record and any orders documented therein. Any exceptions are noted below. BERTHA
[2016-07-07] MEDS: LORAZEPAM 0.5 MG TAB PO PRN (02:13)
[2016-07-07] MEDS ORDERED: CIPROFLOXACIN 250 MG TAB PO SCH (06:00)
[2016-07-07 06:27] LABS: HEMATOCRIT 26.4 % (37-47); MEAN CELL VOLUME 87.1 fL (80-100); MEAN CORPUSCULAR HEMOGLOBIN 29.7 pg (25-34); MEAN CORPUSCULAR HGB CONC 34.1 g/dl (32-36); MEAN PLATELET VOLUME 9.4 fL (7.4-10.4); PLATELET COUNT 249 K/uL (130-400); RED BLOOD COUNT 3.03 M/uL (4.2-5.4); WHITE BLOOD COUNT 8.31 K/uL (4.8-10.8)
[2016-07-07] MEDS: SODIUM CHLOR 0.45% + 20MEQ KCL 1,000 ML IV SCH (06:39)
[2016-07-07 06:50] LABS: BUN/CREATININE RATIO 14.2 (10-20); CALCIUM 8.5 mg/dl (8.5-10.1); CREATININE 0.45 mg/dl (0.60-1.20); POTASSIUM 4.1 mmol/L (3.5-5.1)
--- NOTE | 2016-07-07 07:20 | Critical Care Progress Note ---
Critical Care Progress Note Date of Service Jul 07, 2016. Attending Dr. Agustin Subjective Patient is doing well this morning She states she is comfortable and no pain noted She denies any chest pain, SOB, dizziness or weakness She is eager to be d/c Aside from what was mentioned above the ROS was negative Objective General: not in acute distress, resting comfortably in bed Skin: no rashes noted, no suspicious lesions, no areas of inflammations/ lacerations/ erythema noted CVS: S1/ S2 noted, RRR, no rubs/ murmurs noted, no cyanosis RVS: Clear throughout bilaterally, not in acute respiratory distress, no wheezing/ rales/ crackles noted ENT: no erythema/ injection/ ulcerations noted in the pharynx, no lymphadenopathy Neck: inspection WNL, full ROM of neck, no bruits noted ABD: BSx4, no pain/ tenderness on palpation, no organomegaly MSK: inspection of all limbs WNL, motor and sensation intact in all limbs, no swelling/ pain on palpation of joints NVS: PERRL, EOMI, sensation intact in all extremities Lymph: No lymphadenopathy palpable Assessment & Plan 1. 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 vaginal cuff dehiscence POD0 3. Anemia secondary to acute blood loss 3. H/O breast carcinoma, currently treated with tamoxifin NVS - Alert and oriented x 3 - Dilaudid and fentanyl for pain control CVS - Tachycardia has resolved RVS - CXR WNL GI - Ice chips overnight - advance diet as tolerated RENAL - UA pending - BMP WNL - 1/2 NSS KCL ID - Cipro HEME - CBC revealed a hgb decrease to 9 - consider recheck of cbc this afternoon or recheck as an outpt this week - ref pseudocholinesterase, total serum and dibucaine inhibition DVT Prophylaxis -scd FULL CODE Resident Physician Supervision Note: Dr. Blas was resident physician during care of patient. I separately evaluated patient and did history and exam. I discussed the case with the resident and generally agree with the findings and plan. Uneventful extubation, stable for d/c today. Documented By: Gonzalo Agustin DO Data Medications: Current Inpatient Medications Medications (Trade) Dose Ordered Sig/Leonela Route Start Time Stop Time Status Last Admin Dose Admin Ondansetron HCl (Zofran Inj) 4 mg Q6H PRN IV 07/06/16 14:00 07/07/16 13:59 Ibuprofen (Motrin Tab) 600 mg Q6H PRN PO 07/06/16 14:00 07/07/16 13:59 Oxycodone/ Acetaminophen (Percocet 5-325mg Tab) 1 tab Q4H PRN PO 07/06/16 14:00 07/07/16 13:59 Oxycodone/ Acetaminophen 2 tab 2 tab Q4H PRN PO 07/06/16 14:00 07/07/16 13:59 Promethazine HCl/ Sodium Chloride (Phenergan Inj/ Nss 50ml) 51 ml @ 204 mls/hr Q4H PRN IV 07/06/16 14:00 07/07/16 13:59 Fentanyl Citrate (Fentanyl Inj) 25 mcg Q1H PRN IV 07/06/16 16:45 07/20/16 16:44 Midazolam HCl (Versed Inj) 2 mg Q2H PRN IV 07/06/16 16:45 08/05/16 16:44 Propofol 1 dose 1 dose UD PRN IV 07/06/16 16:45 07/09/16 16:44 07/06/16 18:08 1 DOSE Potassium Chloride/Sodium Chloride (06/21 Nss + 20meq KCl 1000ml) 1,000 ml @ 80 mls/hr [id number] IV 07/06/16 17:30 08/05/16 17:29 07/07/16 06:39 80 MLS/HR Enoxaparin Sodium (Lovenox Inj) 40 mg QAM SQ 07/07/16 09:00 08/06/16 08:59 Hydromorphone HCl (Dilaudid Inj) 1 mg Q4 PRN IV 07/06/16 17:30 07/20/16 17:29 Ciprofloxacin (Ciprofloxacin Tab) 250 mg Q6 PO 07/07/16 06:00 07/13/16 23:59 07/07/16 05:48 250 MG Lorazepam (Ativan Tab) 0.5 mg Q4H PRN PO 07/06/16 21:15 08/05/16 21:14 07/07/16 02:13 0.5 MG I & O: 24-Hour Column 07/07/16 08:00 Intake Total 1212 ml Output Total 525 ml Balance 687 ml Vital Signs: Date Time Temp Pulse Resp B/P Pulse Ox O2 Delivery O2 Flow Rate FiO2 07/07/16 06:00 66 13 100 07/07/16 05:58 67 18 91/60 99 Room Air 07/07/16 05:48 75 15 97/60 99 Room Air 07/07/16 05:00 91 15 89/46 98 07/07/16 04:58 60 14 98 Room Air 07/07/16 04:00 36.8 59 13 100 07/07/16 04:00 99 Room Air Mechanical Ventilator 07/07/16 03:58 59 13 104/49 100 Room Air 07/07/16 02:58 59 15 88/54 100 Room Air 07/07/16 02:00 68 17 100 Room Air 07/07/16 01:58 69 15 98/61 100 07/07/16 00:58 84 16 100/59 99 07/07/16 00:00 37.0 68 13 100 07/06/16 23:57 99 Nasal Cannula 1.0 Mechanical Ventilator 07/06/16 23:00 69 15 99 07/06/16 22:58 66 14 92/51 100 07/06/16 22:00 83 15 99 07/06/16 20:58 92 14 104/64 100 07/06/16 20:45 82 18 100 07/06/16 20:43 85 16 115/62 100 Nasal Cannula 1.0 07/06/16 20:30 75 14 100 07/06/16 20:28 77 20 110/69 100 Nasal Cannula 1.5 07/06/16 20:15 82 15 100 07/06/16 20:13 36.9 75 13 104/70 100 07/06/16 20:00 75 16 100 Nasal Cannula 2.0 07/06/16 20:00 100 Nasal Cannula 2.0 Mechanical Ventilator 07/06/16 19:58 76 15 105/67 100 Mechanical Ventilator 30 07/06/16 19:45 84 18 100 Mechanical Ventilator 30 07/06/16 19:43 74 15 106/74 100 Mechanical Ventilator 30 07/06/16 19:30 87 10 100 Mechanical Ventilator 30 07/06/16 19:15 30 07/06/16 19:15 95 14 100 07/06/16 19:10 91 16 98/77 100 Mechanical Ventilator 07/06/16 19:07 94 18 96/73 100 Mechanical Ventilator 07/06/16 19:00 86 8 100 07/06/16 18:09 36.8 112 12 79/55 100 Mechanical Ventilator 30 07/06/16 17:58 40 07/06/16 17:21 36.8 69 12 90/67 100 Mechanical Ventilator 60 07/06/16 16:30 36.8 69 12 86/55 100 Mechanical Ventilator 60 07/06/16 16:15 36.8 112 12 112/80 100 Mechanical Ventilator 60 07/06/16 16:08 60 07/06/16 16:00 36.8 128 12 125/86 100 Mechanical Ventilator 60 07/06/16 13:00 88 16 123/80 100 07/06/16 11:21 88 16 123/80 100 Room Air 07/06/16 09:29 100 Room Air 07/06/16 09:14 36.5 96 18 141/89 100 Room Air Laboratory Results: Last 24 Hours Test 07/06/16 09:25 07/06/16 15:37 07/06/16 16:57 07/06/16 17:19 White Blood Count 7.10 K/uL Red Blood Count 4.04 M/uL Hemoglobin 12.0 g/dL Hematocrit 35.2 % Mean Corpuscular Volume 87.1 fL Mean Corpuscular Hemoglobin 29.7 pg Mean Corpuscular Hemoglobin Concent 34.1 g/dl Platelet Count 303 K/uL Mean Platelet Volume 9.3 fL Neutrophils (%) (Auto) 35.3 % Lymphocytes (%) (Auto) 34.5 % Monocytes (%) (Auto) 4.1 % Eosinophils (%) (Auto) 25.2 % Basophils (%) (Auto) 0.8 % Neutrophils # (Auto) 2.50 K/uL Lymphocytes # (Auto) 2.45 K/uL Monocytes # (Auto) 0.29 K/uL Eosinophils # (Auto) 1.79 K/uL Basophils # (Auto) 0.06 K/uL RDW Standard Deviation 41.3 fL RDW Coefficient of Variation 12.8 % Immature Granulocyte % (Auto) 0.1 % Immature Granulocyte # (Auto) 0.01 K/uL Prothrombin Time 10.0 SECONDS Prothromb Time International Ratio 0.9 Activated Partial Thromboplast Time 26.4 SECONDS Partial Thromboplastin Ratio 1.0 Sodium Level 140 mmol/L Potassium Level 4.0 mmol/L Chloride Level 105 mmol/L Carbon Dioxide Level 24 mmol/L Anion Gap 11.0 mmol/L 17.0 mmol/L Blood Urea Nitrogen 8 mg/dl Creatinine 0.58 mg/dl Est Creatinine Clear Calc Drug Dose 119.0 ml/min Estimated GFR () 120.3 Estimated GFR (Non- 103.8 BUN/Creatinine Ratio 13.4 Random Glucose 121 mg/dl Calcium Level 9.5 mg/dl Total Bilirubin 0.2 mg/dl Aspartate Amino Transf (AST/SGOT) 24 U/L Alanine Aminotransferase (ALT/SGPT) 54 U/L Alkaline Phosphatase 60 U/L Total Protein 7.0 gm/dl Albumin 3.3 gm/dl Globulin 3.7 gm/dl Albumin/Globulin Ratio 0.9 Bedside Hemoglobin 10.9 g/dl Bedside Hematocrit 32 % Bedside Sodium 141 mEq/L Bedside Potassium 4.3 mEq/L Bedside Chloride 104 mEq/L Bedside Total CO2 26 mEq/l Bedside Blood Urea Nitrogen 6 mg/dl Bedside Creatinine 0.4 mg/dl Bedside Glucose (other) 150 mg/dl Bedside Ionized Calcium (Gopi) 1.30 mmol/l Total Creatine Kinase 54 U/L Blood Gas Sample Site L Radial Bedside Blood Gas pH (LAB) 7.33 Bedside Blood Gas pCO2 (LAB) 45 mmHg Bedside Blood Gas pO2 (LAB) 156 mmHg Bedside Blood Gas HCO3 (LAB) 24 meq/L Bedside Blood Gas Total CO2 25 mEq/l Bedside Blood Gas Base Excess (LAB) -2.0 meq/L Bedside Blood Gas O2 Saturation 99.0 % Ashok Test Pass Oxygen Delivery Device Ventilator Bedside Oxygen Rate (breaths/min) 12 Blood Gas Minute Ventilation 6 Bedside FiO2 40 % Blood Gas Tidal Volume 450 Blood Gas PEEP 5 Test 07/06/16 18:30 07/07/16 05:36 White Blood Count 8.31 K/uL Red Blood Count 3.03 M/uL Hemoglobin 9.0 g/dL Hematocrit 26.4 % Mean Corpuscular Volume 87.1 fL Mean Corpuscular Hemoglobin 29.7 pg Mean Corpuscular Hemoglobin Concent 34.1 g/dl RDW Standard Deviation 41.4 fL RDW Coefficient of Variation 12.9 % Platelet Count 249 K/uL Mean Platelet Volume 9.4 fL Sodium Level 142 mmol/L Potassium Level 4.1 mmol/L Chloride Level 108 mmol/L Carbon Dioxide Level 23 mmol/L Anion Gap 11.0 mmol/L Blood Urea Nitrogen 6 mg/dl Creatinine 0.45 mg/dl Est Creatinine Clear Calc Drug Dose 153.4 ml/min Estimated GFR () 130.7 Estimated GFR (Non- 112.8 BUN/Creatinine Ratio 14.2 Random Glucose 113 mg/dl Calcium Level 8.5 mg/dl
--- NOTE | 2016-07-07 07:53 | Anesthesiology Progress Note ---
Anesthesia Progress Note Date of Service Jul 07, 2016. Progress Notes Pt is POD #1 s/p vaginal cuff repair. The patient was left intubated post- operatively 2/2 potential pseudocholinesterase deficiency. Pt was extubated last night without complications. Pt has been stable overnight and the pt is laying in bed comfortably today. She has no recall of her intra-operative course. I counseled her on pseudocholinesterase deficiency. She had lab work drawn assessing her dibucaine number and pseudocholinesterase activity levels, but I reminded her that those results will take a few weeks before she can have a definitive diagnosis. She was understanding of the situation. I will follow- up with her when her test results come back.
--- NOTE | 2016-07-07 07:54 | Progress Note ---
Subjective Date of Service: Jul 07, 2016. Subjective Pt evaluation today including: conversation w/ patient, conversation w/ family , physical exam, chart review, conversation w/ marine engineering consultant Voiding: no voiding problems Feeling "great." No breathing difficulty, shortness of breath or chest pain. Able to void and very eager for regular diet this AM. Would like to go home VERO. Problem List Medical Problems: (1) Vaginal bleeding Status: Acute Review of Systems All Other Systems: Reviewed and Negative Objective Vital Signs Date Time Temp Pulse Resp B/P Pulse Ox O2 Delivery O2 Flow Rate FiO2 07/07/16 06:00 66 13 100 07/07/16 05:58 67 18 91/60 99 Room Air 07/07/16 05:48 75 15 97/60 99 Room Air 07/07/16 05:00 91 15 89/46 98 07/07/16 04:58 60 14 98 Room Air 07/07/16 04:00 36.8 59 13 100 07/07/16 04:00 99 Room Air Mechanical Ventilator 07/07/16 03:58 59 13 104/49 100 Room Air 07/07/16 02:58 59 15 88/54 100 Room Air 07/07/16 02:00 68 17 100 Room Air 07/07/16 01:58 69 15 98/61 100 07/07/16 00:58 84 16 100/59 99 07/07/16 00:00 37.0 68 13 100 07/06/16 23:57 99 Nasal Cannula 1.0 Mechanical Ventilator 07/06/16 23:00 69 15 99 07/06/16 22:58 66 14 92/51 100 07/06/16 22:00 83 15 99 07/06/16 20:58 92 14 104/64 100 07/06/16 20:45 82 18 100 07/06/16 20:43 85 16 115/62 100 Nasal Cannula 1.0 07/06/16 20:30 75 14 100 07/06/16 20:28 77 20 110/69 100 Nasal Cannula 1.5 07/06/16 20:15 82 15 100 07/06/16 20:13 36.9 75 13 104/70 100 07/06/16 20:00 75 16 100 Nasal Cannula 2.0 07/06/16 20:00 100 Nasal Cannula 2.0 Mechanical Ventilator 07/06/16 19:58 76 15 105/67 100 Mechanical Ventilator 30 1/17/17 19:45 84 18 100 Mechanical Ventilator 30 07/06/16 19:43 74 15 106/74 100 Mechanical Ventilator 30 07/06/16 19:30 87 10 100 Mechanical Ventilator 30 07/06/16 19:15 30 07/06/16 19:15 95 14 100 07/06/16 19:10 91 16 98/77 100 Mechanical Ventilator 07/06/16 19:07 94 18 96/73 100 Mechanical Ventilator 07/06/16 19:00 86 8 100 07/06/16 18:09 36.8 112 12 79/55 100 Mechanical Ventilator 30 07/06/16 17:58 40 07/06/16 17:21 36.8 69 12 90/67 100 Mechanical Ventilator 60 07/06/16 16:30 36.8 69 12 86/55 100 Mechanical Ventilator 60 07/06/16 16:15 36.8 112 12 112/80 100 Mechanical Ventilator 60 07/06/16 16:08 60 07/06/16 16:00 36.8 128 12 125/86 100 Mechanical Ventilator 60 07/06/16 13:00 88 16 123/80 100 07/06/16 11:21 88 16 123/80 100 Room Air 07/06/16 09:29 100 Room Air 07/06/16 09:14 36.5 96 18 141/89 100 Room Air Physical Exam General Appearance: no apparent distress Eyes: normal inspection ENT: hearing grossly normal Neck: supple Respiratory/Chest: no respiratory distress, no accessory muscle use Cardiovascular: no edema Abdomen: non tender, soft Extremities: non-tender Neurologic/Psychiatric: alert, normal mood/affect Comments: No internal vaginal exam performed. Laboratory Results Last 24 Hours Test 07/06/16 09:25 07/06/16 15:37 07/06/16 16:57 07/06/16 17:19 White Blood Count 7.10 K/uL Red Blood Count 4.04 M/uL Hemoglobin 12.0 g/dL Hematocrit 35.2 % Mean Corpuscular Volume 87.1 fL Mean Corpuscular Hemoglobin 29.7 pg Mean Corpuscular Hemoglobin Concent 34.1 g/dl Platelet Count 303 K/uL Mean Platelet Volume 9.3 fL Neutrophils (%) (Auto) 35.3 % Lymphocytes (%) (Auto) 34.5 % Monocytes (%) (Auto) 4.1 % Eosinophils (%) (Auto) 25.2 % Basophils (%) (Auto) 0.8 % Neutrophils # (Auto) 2.50 K/uL Lymphocytes # (Auto) 2.45 K/uL Monocytes # (Auto) 0.29 K/uL Eosinophils # (Auto) 1.79 K/uL Basophils # (Auto) 0.06 K/uL RDW Standard Deviation 41.3 fL RDW Coefficient of Variation 12.8 % Immature Granulocyte % (Auto) 0.1 % Immature Granulocyte # (Auto) 0.01 K/uL Prothrombin Time 10.0 SECONDS Prothromb Time International Ratio 0.9 Activated Partial Thromboplast Time 26.4 SECONDS Partial Thromboplastin Ratio 1.0 Sodium Level 140 mmol/L Potassium Level 4.0 mmol/L Chloride Level 105 mmol/L Carbon Dioxide Level 24 mmol/L Anion Gap 11.0 mmol/L 17.0 mmol/L Blood Urea Nitrogen 8 mg/dl Creatinine 0.58 mg/dl Est Creatinine Clear Calc Drug Dose 119.0 ml/min Estimated GFR () 120.3 Estimated GFR (Non- 103.8 BUN/Creatinine Ratio 13.4 Random Glucose 121 mg/dl Calcium Level 9.5 mg/dl Total Bilirubin 0.2 mg/dl Aspartate Amino Transf (AST/SGOT) 24 U/L Alanine Aminotransferase (ALT/SGPT) 54 U/L Alkaline Phosphatase 60 U/L Total Protein 7.0 gm/dl Albumin 3.3 gm/dl Globulin 3.7 gm/dl Albumin/Globulin Ratio 0.9 Bedside Hemoglobin 10.9 g/dl Bedside Hematocrit 32 % Bedside Sodium 141 mEq/L Bedside Potassium 4.3 mEq/L Bedside Chloride 104 mEq/L Bedside Total CO2 26 mEq/l Bedside Blood Urea Nitrogen 6 mg/dl Bedside Creatinine 0.4 mg/dl Bedside Glucose (other) 150 mg/dl Bedside Ionized Calcium (Gopi) 1.30 mmol/l Total Creatine Kinase 54 U/L Blood Gas Sample Site L Radial Bedside Blood Gas pH (LAB) 7.33 Bedside Blood Gas pCO2 (LAB) 45 mmHg Bedside Blood Gas pO2 (LAB) 156 mmHg Bedside Blood Gas HCO3 (LAB) 24 meq/L Bedside Blood Gas Total CO2 25 mEq/l Bedside Blood Gas Base Excess (LAB) -2.0 meq/L Bedside Blood Gas O2 Saturation 99.0 % Ashok Test Pass Oxygen Delivery Device Ventilator Bedside Oxygen Rate (breaths/min) 12 Blood Gas Minute Ventilation 6 Bedside FiO2 40 % Blood Gas Tidal Volume 450 Blood Gas PEEP 5 Test 07/06/16 18:30 07/07/16 05:36 White Blood Count 8.31 K/uL Red Blood Count 3.03 M/uL Hemoglobin 9.0 g/dL Hematocrit 26.4 % Mean Corpuscular Volume 87.1 fL Mean Corpuscular Hemoglobin 29.7 pg Mean Corpuscular Hemoglobin Concent 34.1 g/dl RDW Standard Deviation 41.4 fL RDW Coefficient of Variation 12.9 % Platelet Count 249 K/uL Mean Platelet Volume 9.4 fL Sodium Level 142 mmol/L Potassium Level 4.1 mmol/L Chloride Level 108 mmol/L Carbon Dioxide Level 23 mmol/L Anion Gap 11.0 mmol/L Blood Urea Nitrogen 6 mg/dl Creatinine 0.45 mg/dl Est Creatinine Clear Calc Drug Dose 153.4 ml/min Estimated GFR () 130.7 Estimated GFR (Non- 112.8 BUN/Creatinine Ratio 14.2 Random Glucose 113 mg/dl Calcium Level 8.5 mg/dl Assessment and Plan Partial cuff dehiscence - repaired in OR yesterday without difficulty. Anticipate normal healing. Plan 1wk preventive ciprofloxacin, and f/u with eligibility services representative onc surgeon in 1-2 weeks. 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 Awaiting lab results which I am told can take up to several weeks due to shipment of samples to [facility] for testing. If confirmed, patient will need to avoid depolarizing paralytics in the future and may wish to have family members tested for this condition as well. Anemia - tolerated well by patient, and not unexpected given her bleeding yesterday. Allow recovery with dietary iron and time. Disposition: Would recommend patient for discharge to home today on regular diet , with light activity (discussed with patient) for 1-2 weeks, and follow up with eligibility services representative onc surgeon as above. Rx for cipro was printed and placed in patient chart yesterday.
--- NOTE | 2016-07-07 08:05 | Anesthesiology Progress Note ---
Anesthesia Post Op Note Date & Time Jul 07, 2016 at 08:01 Vital Signs Pain Intensity: 0.0 Vital Signs Past 12 Hours Date Time Temp Pulse Resp B/P Pulse Ox O2 Delivery O2 Flow Rate FiO2 07/07/16 06:00 66 13 100 07/07/16 05:58 67 18 91/60 99 Room Air 07/07/16 05:48 75 15 97/60 99 Room Air 07/07/16 05:00 91 15 89/46 98 07/07/16 04:58 60 14 98 Room Air 07/07/16 04:00 36.8 59 13 100 07/07/16 04:00 99 Room Air Mechanical Ventilator 07/07/16 03:58 59 13 104/49 100 Room Air 07/07/16 02:58 59 15 88/54 100 Room Air 07/07/16 02:00 68 17 100 Room Air 07/07/16 01:58 69 15 98/61 100 07/07/16 00:58 84 16 100/59 99 07/07/16 00:00 37.0 68 13 100 07/06/16 23:57 99 Nasal Cannula 1.0 Mechanical Ventilator 07/06/16 23:00 69 15 99 07/06/16 22:58 66 14 92/51 100 07/06/16 22:00 83 15 99 07/06/16 20:58 92 14 104/64 100 07/06/16 20:45 82 18 100 07/06/16 20:43 85 16 115/62 100 Nasal Cannula 1.0 07/06/16 20:30 75 14 100 07/06/16 20:28 77 20 110/69 100 Nasal Cannula 1.5 07/06/16 20:15 82 15 100 07/06/16 20:13 36.9 75 13 104/70 100 Notes Mental Status: alert / awake / arousable, participated in evaluation Pt Amnestic to Procedure: Yes Nausea / Vomiting: adequately controlled Pain: adequately controlled Airway Patency, RR, SpO2: stable & adequate BP & HR: stable & adequate Hydration State: stable & adequate Anesthetic Complications: no major complications apparent Pt awake, alert, following commands. VSS. Discussed medical management with patient and Anesthesiologist. Pt expresses understanding. Educational handout provided to patient per request. No further distress noted.
--- NOTE | 2016-07-07 08:43 | Progress Note ---
Medicine Progress Note Date & Time of Visit: Jul 07, 2016 at 08:12. Subjective Pt was seen ad examined Lying in bed comfortable with no distress with son at bedside Pt was extubated last night she said that she feels good she denies any chest pain, palpitation, dizziness and SOB Pt is anxious to go home today Objective Last 8 Hrs Date Time Temp Pulse Resp B/P Pulse Ox O2 Delivery O2 Flow Rate FiO2 07/07/16 06:00 66 13 100 07/07/16 05:58 67 18 91/60 99 Room Air 07/07/16 05:48 75 15 97/60 99 Room Air 07/07/16 05:00 91 15 89/46 98 07/07/16 04:58 60 14 98 Room Air 07/07/16 04:00 36.8 59 13 100 07/07/16 04:00 99 Room Air Mechanical Ventilator 07/07/16 03:58 59 13 104/49 100 Room Air 07/07/16 02:58 59 15 88/54 100 Room Air 07/07/16 02:00 68 17 100 Room Air 07/07/16 01:58 69 15 98/61 100 07/07/16 00:58 84 16 100/59 99 Physical Exam: General- No acute distress Head- atraumatic Eyes- PERRL, EOMI ENT- oropharynx clear Neck- supple, no JVD Lungs- clear to auscultation and percussion Heart- regular rhythm; no murmur Abdomen- normal bowel sounds, soft Extremities- no pretibial edema, no calf tenderness Neuro- alert, oriented x 3; PERRL, EOMI; no facial palsy; Skin- warm & dry Laboratory Results: Last 24 Hours Test 07/06/16 09:25 07/06/16 15:37 07/06/16 16:57 07/06/16 17:19 White Blood Count 7.10 K/uL Red Blood Count 4.04 M/uL Hemoglobin 12.0 g/dL Hematocrit 35.2 % Mean Corpuscular Volume 87.1 fL Mean Corpuscular Hemoglobin 29.7 pg Mean Corpuscular Hemoglobin Concent 34.1 g/dl Platelet Count 303 K/uL Mean Platelet Volume 9.3 fL Neutrophils (%) (Auto) 35.3 % Lymphocytes (%) (Auto) 34.5 % Monocytes (%) (Auto) 4.1 % Eosinophils (%) (Auto) 25.2 % Basophils (%) (Auto) 0.8 % Neutrophils # (Auto) 2.50 K/uL Lymphocytes # (Auto) 2.45 K/uL Monocytes # (Auto) 0.29 K/uL Eosinophils # (Auto) 1.79 K/uL Basophils # (Auto) 0.06 K/uL RDW Standard Deviation 41.3 fL RDW Coefficient of Variation 12.8 % Immature Granulocyte % (Auto) 0.1 % Immature Granulocyte # (Auto) 0.01 K/uL Prothrombin Time 10.0 SECONDS Prothromb Time International Ratio 0.9 Activated Partial Thromboplast Time 26.4 SECONDS Partial Thromboplastin Ratio 1.0 Sodium Level 140 mmol/L Potassium Level 4.0 mmol/L Chloride Level 105 mmol/L Carbon Dioxide Level 24 mmol/L Anion Gap 11.0 mmol/L 17.0 mmol/L Blood Urea Nitrogen 8 mg/dl Creatinine 0.58 mg/dl Est Creatinine Clear Calc Drug Dose 119.0 ml/min Estimated GFR () 120.3 Estimated GFR (Non- 103.8 BUN/Creatinine Ratio 13.4 Random Glucose 121 mg/dl Calcium Level 9.5 mg/dl Total Bilirubin 0.2 mg/dl Aspartate Amino Transf (AST/SGOT) 24 U/L Alanine Aminotransferase (ALT/SGPT) 54 U/L Alkaline Phosphatase 60 U/L Total Protein 7.0 gm/dl Albumin 3.3 gm/dl Globulin 3.7 gm/dl Albumin/Globulin Ratio 0.9 Bedside Hemoglobin 10.9 g/dl Bedside Hematocrit 32 % Bedside Sodium 141 mEq/L Bedside Potassium 4.3 mEq/L Bedside Chloride 104 mEq/L Bedside Total CO2 26 mEq/l Bedside Blood Urea Nitrogen 6 mg/dl Bedside Creatinine 0.4 mg/dl Bedside Glucose (other) 150 mg/dl Bedside Ionized Calcium (Gopi) 1.30 mmol/l Total Creatine Kinase 54 U/L Blood Gas Sample Site L Radial Bedside Blood Gas pH (LAB) 7.33 Bedside Blood Gas pCO2 (LAB) 45 mmHg Bedside Blood Gas pO2 (LAB) 156 mmHg Bedside Blood Gas HCO3 (LAB) 24 meq/L Bedside Blood Gas Total CO2 25 mEq/l Bedside Blood Gas Base Excess (LAB) -2.0 meq/L Bedside Blood Gas O2 Saturation 99.0 % Ashok Test Pass Oxygen Delivery Device Ventilator Bedside Oxygen Rate (breaths/min) 12 Blood Gas Minute Ventilation 6 Bedside FiO2 40 % Blood Gas Tidal Volume 450 Blood Gas PEEP 5 Test 07/06/16 18:30 07/07/16 05:36 White Blood Count 8.31 K/uL Red Blood Count 3.03 M/uL Hemoglobin 9.0 g/dL Hematocrit 26.4 % Mean Corpuscular Volume 87.1 fL Mean Corpuscular Hemoglobin 29.7 pg Mean Corpuscular Hemoglobin Concent 34.1 g/dl RDW Standard Deviation 41.4 fL RDW Coefficient of Variation 12.9 % Platelet Count 249 K/uL Mean Platelet Volume 9.4 fL Sodium Level 142 mmol/L Potassium Level 4.1 mmol/L Chloride Level 108 mmol/L Carbon Dioxide Level 23 mmol/L Anion Gap 11.0 mmol/L Blood Urea Nitrogen 6 mg/dl Creatinine 0.45 mg/dl Est Creatinine Clear Calc Drug Dose 153.4 ml/min Estimated GFR () 130.7 Estimated GFR (Non- 112.8 BUN/Creatinine Ratio 14.2 Random Glucose 113 mg/dl Calcium Level 8.5 mg/dl Date/Time Source Procedure Growth Status 07/06/16 16:15 Nasal MRSA DNA Surveillance Screen - Final Specimen Negative for MRSA by DNA Probe Complete Assessment & Plan Vaginal Bleeding Related to dehiscence of the vaginal cuff. Post op day 1 OBGYN on board [facility] today 9, continue monitor cbc as an outpatient Continue preventive Cipro for 1 week as per ENGRAVER [employer]ARD METALS surgeon and f/u with solution analyst onc surgeon in 1-2 weeks. Possible Pseudocholinesterase deficiency Unable to extubate yesterday after the procedure was placed on vent support and sedated with propofol and versed for agitation She was extubated last night Will start her on diet Lab was sent for work up for to r/o pseudocholinesterase deficiency if positive she will have to avoid depolarizing paralytics in the future [employer] Paraprofessional Dr. Agustin on board H/O breast carcinoma, currently treated with tamoxifin Stable Tachycardia Possible related to anxiety Stable GI -on Protonix DVT Prophylaxis -was on SCDs due to surgery and vaginal bleeding. CODE Status FULL CODE Disposition Follow up appointment with your primary care provider On Jul 12 at 9:50 am Follow up with solution analyst oncology surgeon in 1-2 weeks. Continue light activity for 1-2 weeks Current Inpatient Medications: Current Inpatient Medications Medications (Trade) Dose Ordered Sig/Leonela Route Start Time Stop Time Status Last Admin Dose Admin Ondansetron HCl (Zofran Inj) 4 mg Q6H PRN IV 07/06/16 14:00 07/07/16 13:59 Ibuprofen (Motrin Tab) 600 mg Q6H PRN PO 07/06/16 14:00 07/07/16 13:59 Oxycodone/ Acetaminophen (Percocet 5-325mg Tab) 1 tab Q4H PRN PO 07/06/16 14:00 07/07/16 13:59 Oxycodone/ Acetaminophen 2 tab 2 tab Q4H PRN PO 07/06/16 14:00 07/07/16 13:59 Promethazine HCl/ Sodium Chloride (Phenergan Inj/ Nss 50ml) 51 ml @ 204 mls/hr Q4H PRN IV 07/06/16 14:00 07/07/16 13:59 Enoxaparin Sodium (Lovenox Inj) 40 mg QAM SQ 07/07/16 09:00 08/06/16 08:59 Ciprofloxacin (Ciprofloxacin Tab) 250 mg Q6 PO 07/07/16 06:00 07/13/16 23:59 07/07/16 05:48 250 MG Lorazepam (Ativan Tab) 0.5 mg Q4H PRN PO 07/06/16 21:15 08/05/16 21:14 07/07/16 02:13 0.5 MG
--- NOTE | 2016-07-07 08:59 | Discharge Instructions ---
Discharge Instructions Admission Reason for Admission: Pseudocholinesterase Deficiency Discharge Discharge Diagnosis / Problem: Vaginal bleeding due to dehiscence of the vaginal cuff, cholinesterase def Discharge Goals Goal(s): Decrease discomfort, Improve function, Improve disease control Activity Recommendations Activity Limitations: resume your previous activity (Light activity for 1 to 2 weeks) . Instructions / Follow-Up Instructions / Follow-Up Follow up appointment with your primary care provider On Tuesday, Jul 12 at 9:50 am Follow up with obstetrician gynecologist oncology surgeon in 1-2 weeks. Continue light activity for 1-2 weeks Check CBC on Tuesday (script was given to pt) Hgb on discharge 9. Current Hospital Diet Patient's current hospital diet: Regular Diet Discharge Diet Recommended Diet: Regular Diet Procedures Procedures Performed: Reclosure of vaginal cuff dehisence Pending Studies Studies pending at discharge: yes List of pending studies: Lab sent to [facility] to r/o Pseudocholinesterase Deficiency Medical Emergencies . Who to Call and When: Medical Emergencies: If at any time you feel your situation is an emergency, please call 911 immediately. . Non-Emergent Contact Non-Emergency issues call your: Primary Care Provider, Surgeon (seek medical assistance if you have any bleeding.) Call Non-Emergent contact if: you have a fever, you have any medication questions . . "Provider Documentation" section prepared by Anh Huertas. VTE Core Measure Inpt VTE Proph given/why not?: SCD's
[2016-07-07] MEDS ORDERED: ENOXAPARIN 40 MG/0.4 ML SYR SQ SCH (09:00)
[2016-07-07] MEDS ORDERED: CPR250 PO (09:07)
--- NOTE | 2016-07-10 07:54 | Discharge Summary ---
Discharge Summary Admission Date: Jul 06, 2016 at 15:52 Discharge Date: Jul 07, 2016 Discharge Disposition: Home Principal Diagnosis: Pseudocholinesterase Deficiency Secondary Diagnoses/Problems: Vaginal Bleeding due to dehiscence of the vaginal cuff Tachycardia Procedures: Repaired of the dehiscence vaginal cuff Consultations: CEMETERY MANAGER Farm Equipment Maintenance Supervisor Medication Reconciliation New Medications: Ciprofloxacin (Ciprofloxacin HCl) 250 Mg Tab 1 TAB PO Q6H for 7 Days, #28 Continued Medications: Calcium (Calcium) 500 Mg Tab 500 MG PO QAM Cholecalciferol (Vitamin D3) 1,000 Unit Tab 1000 UNITS PO QAM Multivitamin (Multivitamin) Tab 1 TAB PO QAM Tamoxifen (Nolvadex) 20 Mg Tab 20 MG PO QAM Admission Information HPI (per Admitting provider): History obtained from clinic records and hospital chart since pt is intubated on vent support and sedated. 55 yo female with PMH of breast cancer and currently on tamoxifen recently gannon a TAHBSO done on 06/17/[address] Robledo at [place] with no complication. She had a follow up appointment on 06/28/16 and the cuff was checked at that time it was intact. Today while she was at work, she noticed a gush of blood coming from her vagina. She called her surgeon Dr Robledo who advised her to come to [place], but because she was bleeding a lot, she was told to go to the closest ER. Dr Prince was referred and evaluated her in the ED and was noted dehiscence of the vaginal cuff. She went to the OR to repair the edge of the cuff. After the procedure she was unable to come off the ventilation due to tachycardia and hypertension. She had poor TV when tried to extubate. She was sent to the ICU to monitor and try to extubate later. Physical Exam (per Admitting): General Appearance: + pertinent finding (sedated, intubated on vent support) Head: normocephalic Eyes: normal inspection, PERRL ENT: normal ENT inspection Neck: no JVD Respiratory/Chest: lungs clear Cardiovascular: no edema, no JVD, no murmur Abdomen/GI: normal bowel sounds Back: normal inspection Extremities/Musculoskelatal: no pedal edema Neurologic/Psych: + pertinent finding (sedated with propofol) Skin: warm/dry Hospital Course Vaginal Bleeding Related to dehiscence of the vaginal cuff. Post op day 1 OBGYN on board Hbg today 9, continue monitor cbc as an outpatient Continue preventive Cipro for 1 week as per CEMETERY MANAGER surgeon and f/u with centerless grinder set up operator onc surgeon in 1-2 weeks. Possible Pseudocholinesterase deficiency Unable to extubate yesterday after the procedure was placed on vent support and sedated with propofol and versed for agitation She was extubated last night Will start her on diet Lab was sent for work up for to r/o pseudocholinesterase deficiency if positive she will have to avoid depolarizing paralytics in the future Farm Equipment Maintenance Supervisor Dr. Agustin on board H/O breast carcinoma, currently treated with tamoxifin Stable Tachycardia Possible related to anxiety Stable GI -on Protonix DVT Prophylaxis -was on SCDs due to surgery and vaginal bleeding. CODE Status FULL CODE Disposition Follow up appointment with your primary care provider On Jul 12 at 9:50 am Follow up with centerless grinder set up operator oncology surgeon in 1-2 weeks. Continue light activity for 1-2 weeks Total time spent on discharge = 35 minutes This includes examination of the patient, discharge planning, medication reconciliation, and communication with other providers. Discharge Instructions Admission Reason for Admission: Pseudocholinesterase Deficiency Discharge Discharge Diagnosis / Problem: Vaginal bleeding due to dehiscence of the vaginal cuff, cholinesterase def Activity Recommendations Activity Limitations: as noted below (Light activity for 1 to 2 weeks) . Instructions / Follow-Up Instructions / Follow-Up Follow up appointment with your primary care provider On Jul 12 at 9:50 am Follow up with centerless grinder set up operator oncology surgeon in 1-2 weeks. Continue light activity for 1-2 weeks Check CBC on Tuesday (script was given to pt) Hgb on discharge 9. Current Hospital Diet Patient's current hospital diet: Regular Diet Discharge Diet Recommended Diet: Regular Diet Procedures Procedures Performed: Reclosure of vaginal cuff dehisence Pending Studies Studies pending at discharge: yes List of pending studies: Lab sent to [facility] to r/o Pseudocholinesterase Deficiency Medical Emergencies . Who to Call and When: Medical Emergencies: If at any time you feel your situation is an emergency, please call 911 immediately. . Non-Emergent Contact Non-Emergency issues call your: Primary Care Provider, Surgeon (seek medical assistance if you have any bleeding.) Call Non-Emergent contact if: you have a fever, you have any medication questions . . "Provider Documentation" section prepared by Anh Huertas. VTE Core Measure Inpt VTE Proph given/why not?: SCD's Additional Copies To Venice Johnson M.D.(CEMETERY MANAGER/OB) Armida Johnson M.D.
[2017-03-07] MEDS ORDERED: [UNRECOGNIZED DRUG - OTHER] TOP (15:20)
[2017-03-10] MEDS ORDERED: LORA-741 PO (09:20)
[2017-03-10] MEDS ORDERED: OXYC-57 PO (13:17)
== END 2016-07-07 10:05 | disposition home or self-care (01) | DRG 908 ==
LOC: C.EDB 09:08 → C.MSICU 15:52
PROVIDERS: ADMIT Internal Medicine; ATTEND Internal Medicine
PROC: 0UQG7ZZ Repair Vagina, Via Natural or Artificial Opening (ICD-10-PCS; principal; 2016-07-06 10:00)
DX: T81.32XA Disruption of internal operation (surgical) wound, not elsewhere classified, initial encounter (principal); N99.820 Postprocedural hemorrhage of a genitourinary system organ or structure following a genitourinary system procedure; D62 Acute posthemorrhagic anemia; Y83.6 Removal of other organ (partial) (total) as the cause of abnormal reaction of the patient, or of later complication, without mention of misadventure at the time of the procedure; E88.09 Other disorders of plasma-protein metabolism, not elsewhere classified; T41.205A Adverse effect of unspecified general anesthetics, initial encounter; Y83.9 Surgical procedure, unspecified as the cause of abnormal reaction of the patient, or of later complication, without mention of misadventure at the time of the procedure; Y92.234 Operating room of hospital as the place of occurrence of the external cause; I10 Essential (primary) hypertension; R00.0 Tachycardia, unspecified; F41.9 Anxiety disorder, unspecified; M19.90 Unspecified osteoarthritis, unspecified site; E66.9 Obesity, unspecified; Z68.27 Body mass index [BMI] 27.0-27.9, adult; Z90.710 Acquired absence of both cervix and uterus; Z90.722 Acquired absence of ovaries, bilateral; Z85.3 Personal history of malignant neoplasm of breast; Z79.810 Long term (current) use of selective estrogen receptor modulators (SERMs)

== ENCOUNTER → 2016-07-09 | Outpatient (CLI) | payer BC ==
[~2016-07-09] MED LIST changes: +CPR250 PO; +LORA-741 PO; +OXYC-57 PO; +[UNRECOGNIZED DRUG - OTHER] TOP
[2016-07-09 17:00] LABS: HEMATOCRIT 28.3 % (37-47); MEAN CELL VOLUME 88.4 fL (80-100); MEAN CORPUSCULAR HGB CONC 33.9 g/dl (32-36); MEAN PLATELET VOLUME 9.8 fL (7.4-10.4); PLATELET COUNT 231 K/uL (130-400); WHITE BLOOD COUNT 7.15 K/uL (4.8-10.8)
--- NOTE | 2016-07-13 10:05 | CODING QUERY NO DIAGNOSIS ---
: 60 TREATMENT RENDERED WITHOUT A DIAGNOSIS To promote full compliance with coding requirements relating to patient care, physician participation is requested in all cases of geological engineer uncertainty. Please assist us with providing a diagnosis/symptom for the test(s) below: A diagnosis/symptom was not documented on your Order. A valid diagnosis/symptom is required to bill all insurances. Please remember that we are unable to code a diagnosis of rule out, probable, possible, questionable, or suspected. Tests that require a diagnosis: DOS: 07/09/16 * CBC W/O Differential DIAGNOSIS: Provider Signature: Date: Thank you Bella Espitia Health Information Management Once completed, please kindly fax back to [phone] For questions please call [phone]
== END | disposition home or self-care (01) ==
LOC: C.LABBC 14:00
PROVIDERS: ATTEND Internal Medicine
DX: Z00.00 Encounter for general adult medical examination without abnormal findings (principal)

== ENCOUNTER → 2017-02-25 | Outpatient (CLI) | payer BC ==
--- NOTE | 2017-02-25 07:33 | DIAGNOSTIC IMAGING REPORT ---
CT SINUSES WITH BRAIN LAB CT DOSE: 659.38 mGy.cm CLINICAL HISTORY: CHRONIC SINUITIS TECHNIQUE: Helical images were acquired in the transverse plane. Sagittal and coronal reformatted images were reviewed. A dose lowering technique was utilized adhering to the principles of ALARA. COMPARISON STUDY: 09/24/2009 FINDINGS: There is near complete opacification of the left maxillary sinus. The right maxilla sinus is clear. There is minor mucosal disease within the ethmoid sinuses. There is mild mucosal disease within the left posterior frontal sinus. The mastoid air cells appear clear. The middle ear cavities are well aerated. There is no hydrocephalus. The ethmoid notches are protected. The right ostiomeatal unit is patent. The right ostiomeatal unit is patent. There is a defect within the medial wall of the left maxillary sinus, possibly related to prior surgery. IMPRESSION: 1. Defect within the medial wall of the left maxilla sinus, possibly related to prior surgery 2. Near complete opacification of the left maxillary sinus 3. Mild mucosal disease in the left posterior frontal sinus. Minor mucosal disease within the ethmoid sinuses. Electronically signed by: Hilton Stein M.D. 02/25/2017 7:32 AM Dictated Date/Time: 02/25/2017 7:27 AM
== END | disposition home or self-care (01) ==
LOC: C.CTS 06:34
PROVIDERS: ATTEND Otolaryngology
DX: J32.9 Chronic sinusitis, unspecified (principal); J34.2 Deviated nasal septum

== ENCOUNTER → 2017-03-10 | Day surgery (SDC) | payer BC ==
[2017-03-07 15:20] VITALS: Ht 167.6 cm; Wt 72.7 kg
--- NOTE | 2017-03-09 16:18 | History and Physical: Surg Cnt ---
History & Physical Date Mar 09, 2017. Chief Complaint sinus infections History of Present Illness The patient is a 56 year old female with complaints of Past Medical/Surgical History Medical Problems: (1) Breast cancer (2) Malignant neoplasm of breast (3) Obesity (4) Pseudocholinesterase deficiency Surgical Problems: (1) H/O breast surgery (2) H/O sinus surgery (3) H/O: hysterectomy (4) History of lumpectomy of right breast (5) S/P RUCHI-BSO (6) S/P total knee replacement Additional History Hepatic Disease: No Endocrine Disorder: No Kidney Disease: No Hypertension: No Heart Disease: No Bleeding Tendencies: No Infectious Diseases: No Allergies Coded Allergies: Bee Venom (Verified Allergy, Severe, ANAPHYLACITC RESPONSE, 03/07/17) Succinylcholine (Verified Allergy, Severe, CHOLINESTERASE DEFICIENCY CONFIRMED, 03/07/17) Amoxicillin (Verified Adverse Reaction, Mild, NAUSEA, 03/07/17) Clavulanic Acid (Verified Adverse Reaction, Mild, NAUSEA, 03/07/17) Home Medications Scheduled Calcium (Calcium), 500 MG PO QAM Cholecalciferol (Vitamin D3), 1,000 UNITS PO QAM Multivitamin (Multivitamin), 1 TAB PO QAM Tamoxifen (Nolvadex), 20 MG PO QAM [Zanful], 1 DOSE TOP UD Physical Examination Skin: warm/dry, no rash Eyes: normal inspection, EOMI, sclerae normal ENT: + pertinent finding (deviated septum and scar tissue, turbinectomies) Head: normocephalic, atraumatic Neck: supple, no adenopathy, trachea midline Respiratory/Chest: lungs clear, normal breath sounds, no respiratory distress Cardiovascular: regular rate, rhythm, no edema, no murmur Abdomen / GI: normal bowel sounds, non tender Back: normal inspection Extremities: normal inspection, normal range of motion Diagnosis chronic sinusitis, septal deviation Plan of Treatment endoscopic sinus surgery and septoplasty
[~2017-03-10] VITALS: Ht 167.6 cm; Wt 72.7 kg
[~2017-03-10] MED LIST changes: +ATROPINE SULFATE 0.1 MG/ML 5ML SYR IV PRN; +BACITRACIN OINT 15 GM TUBE ONE; +CEFAZOLIN 1000MG/55 ML D5W IV SCH; -CPR250 PO; +EpHEDrine SULFATE 50MG/5ML SYR ONE; +EpHEDrine SULFATE INJ 50 MG/ML AMP IV PRN; +EpINEphrine INJ 1MG/ML AMP 1 MG/ML AMP ONE; +FENTANYL CITRATE INJ 50 MCG/1 ML 2 ML VIAL IV PRN; +FENTANYL CITRATE INJ 50 MCG/1 ML 2 ML VIAL ONE; +GELATIN SPONGE 12-7MM ONE; +GLYCOPYRROLATE INJ 0.2 MG/ML VIAL ONE; +LACTATED RINGER'S 1000ML 1,000 ML IV SCH; +LIDO 2%/EPINEPHRINE 1:100000 20 ML VIAL INFIL ONE; +LIDOCAINE 4% MPF SOAK 5 ML = 1 DOSE TOP ONE; +LIDOCAINE HCL 2% 2 ML VIAL (20MG/ML) ONE; +LIDOCAINE/PRILOCAINE 2.5% EA CRM ONE; +MIDAZOLAM HCL 1 MG/ML 2ML VIAL ONE; +NEOSTIGMINE METHYLSULFATE 5 MG/5 ML SYR ONE; +NURSING VERBAL MED ORDER ONE; +ONDANSETRON INJ 2 MG/ML 2 ML VIAL IV PRN; +ONDANSETRON INJ 2 MG/ML 2 ML VIAL ONE; +OXYCODONE/ACETAMINOPHEN 5-325 TAB PO PRN; +PROPOFOL IV EMULSION 10 MG/ML 20 ML VIAL IV ONE; +SODIUM CHLORIDE 0.9% 1000ML 1,000 ML IV SCH
--- NOTE | 2017-03-10 11:10 | History & Physical Bridge Note ---
H&P Re-Evaluation Bridge Note: I have examined the patient, reviewed the History & Physical and in the interval since the performance of the History & Physical I have noted the following changes of clinical significance: No changes noted
--- NOTE | 2017-03-10 13:16 | [facility] Operative Report ---
Operative Report Operative Date Mar 10, 2017. Pre-Operative Diagnosis Chronic Sinusitis, Deviated Septum Post-Operative Diagnosis same as preop Procedure(s) Performed Septoplasty, Endoscopic Sinus Surgery with Brainlab Navigation, Right and Left Frontal, Right and Left Maxillary, Right and Left total Ethmoidectomies Surgeon Dr. Owen Cable Weaver Surgeon(s) none Estimated Blood Loss 40 mL Findings Left maxillary sinus fungal ball and polyps in both ethmoid blocking the nasal frontal ducts Specimens Culture of left Maxillary A: Fungus Ball, Left Maxillary Anesthesia Gen. endotracheal Complication(s) None Disposition Recovery Room / PACU Implants Matthew's 3 Indications 56-year-old lady who underwent sinus surgery previously has a opacified left maxillary, thickened ethmoid and frontal sinus ducts bilaterally Description of Procedure She was brought to the operating room and placed in the supine position. General endotracheal anesthesia was induced. [employer] device was calibrated and used for the entire procedure. The left maxillary sinus was found to be filled with polyps this was explored using the seeker finding a large fungus ball in the left maxillary sinus which was irrigated out with the angled suction and then the fungus ball was removed and sent for biopsy and cultures. At this point the right maxillary sinus was cannulated with the guidewire and dilated using the 6 mm balloon. The right nasal frontal duct was cannulated with the guidewire with [employer] computer guidance and dilated using the 6 mm balloon. The guidewire was left in place as a marker. The frontal sinusotomy was performed using the shaver couple with the [employer] device opening up the bullae ethmoidalis going through the ground lamella into the posterior ethmoid air cells, delineating the posterior most ethmoid air cell along with the skull base and lamina papyracea, exonerating all the posterior and then all the anterior ethmoid air cells up to the previously dilated nasal frontal duct. The nasal frontal duct was redilated with the balloon and catheter was withdrawn. The maxillary sinus was opened by removing polypoid mucosa at its posterior border which is the anterior border of the bullae ethmoidalis. The left frontal sinus was closed over by polyps and scar tissue. The shaver was used to open up the scar tissue and then the nasal frontal duct was cannulated with the guidewire with [employer] computer guidance. The nasal frontal duct was dilated with the balloon and again the guidewire was left in place as a marker. At this point frontal sinusotomy total ethmoidectomy was performed in a similar manner the maxillary sinus was also opened by removing scar tissue and adhesions opening up the to the previously performed wide antrostomy by the previous surgeon. The maxillary sinus was again irrigated clean to make sure there was no residual fungal material. Septoplasty was performed endoscopically. Incision was made over the right- sided bony cartilaginous spur using the 15 blade. Superior and inferior tunnels were elevated. A strip of cartilage was removed from inferiorly to allow the septum to return to the midline. Cartilage was posteriorly from the perpendicular plate of the ethmoid and bilateral posterior tunnels were elevated to isolate the bony and cartilaginous spur projecting to the right which was removed using the caudal dissector and the Christiano forceps. The septum was packed with a the septum Gelfoam after placing propel stents with 2 mini stents 1 in each nasal frontal duct and one regular stents in the right side. The left ethmoid cavity was opened from the previous turbinate resection from the previous surgeon. The patient tolerated procedure well and was taken recovery area in satisfactory condition. I attest to the content of the Intraoperative Record and any orders documented therein. Any exceptions are noted below.
--- NOTE | 2017-03-10 13:18 | Discharge Instructions-SurgCtr ---
Discharge Instructions Date of Service Mar 10, 2017. Visit Reason for Visit: Chronic Sinusitis, Septal Deviation Discharge Discharge Diagnosis / Problem: same plus fungus ball left maxillary sinus Discharge Goals Goal(s): Improve disease control Activity Recommendations Activity Limitations: resume your previous activity Anesthesia . Post Anesthesia Instructions: If you have had General Anesthesia or IV Sedation: * Do not drive today. * Resume driving when surgeon permits. * Do not make important decisions or sign legal documents today. * Call surgeon for: 1. Temperature elevations greater than 101 degrees F. 2. Uncontrollable pain. 3. Excessive bleeding. 4. Persistent nausea and vomiting. 5. Medication intolerance (nausea, vomiting or rash). * For nausea and vomiting use only clear liquids such as: tea, soda, bouillon until nausea subsides, then gradually increase diet as tolerated. * If you have any concerns or questions, call your surgeon's office. If physician is unavailable and it is an emergency, call 911 or go to the nearest emergency room. . Instructions / Follow-Up Instructions / Follow-Up ACTIVITY RECOMMENDATIONS: * Being up and around is good, but no strenuous activity, heavy lifting or physical exertion for one week. * Keep your head elevated 30 degrees when lying down or sleeping. * Do not blow your nose for 48 hours, sniff back instead. * Avoid hot showers. OVER THE COUNTER MEDICATIONS: * You may use Tylenol * Avoid aspirin or aspirin containing products, e.g. as they may increase bleeding. SPECIAL CARE INSTRUCTIONS: * Expect to have bloody drainage from your nose and/or down your throat for one to three days. Change drip pad as needed. * Begin irrigating your nose with saline solution today, at least six to ten times per day and sniff back to help remove old clots or crust. * You may experience nasal and facial congestion, pain and pressure, this is normal. * Please call with any significant and/or progressive pain, redness, swelling around the eyes, visual changes, fever of 101.5 degrees F, active bleeding or any problems or concerns. * If active bleeding occurs, spray the nose three times at one minute intervals with Afrin spray and call or cell phone: . If unable to reach the doctor, go to the nearest Emergency Department. Special Diet: * Avoid extremely hot fluids. FOLLOW UP VISIT: Follow-up Visit with Dr. Owen If not already scheduled, please call to schedule. Diet Recommendations Home Diet: no limitations Procedures Procedures Performed: Septoplasty, Endoscopic Sinus Surgery with Brainlab Navigation, Right and Left Frontal, Right and Left Maxillary, Right and Left total Ethmoidectomies Pending Studies Studies pending at discharge: yes List of pending studies: Biopsy and culture of left maxillary sinus Medical Emergencies . Who to Call and When: Medical Emergencies: If at any time you feel your situation is an emergency, please call 911 immediately. . Non-Emergent Contact Non-Emergency issues call your: Primary Care Provider . . "Provider Documentation" section prepared by Stefany Owen. . [place] Drug Monitoring Program Search Results: no issues identified
[2017-03-10 14:05] VITALS: BP 127/75; PULSE 72; O2SAT 98
--- NOTE | 2017-03-10 15:47 | Anesthesiology Progress Note ---
Anesthesia Post Op Note Date & Time Mar 10, 2017 at 15:47 Vital Signs Pain Intensity: 3 Vital Signs Past 12 Hours Date Time Temp Pulse Resp B/P (MAP) Pulse Ox O2 Delivery O2 Flow Rate FiO2 03/10/17 14:05 72 16 127/75 (92) 98 Room Air 03/10/17 13:31 36.5 65 16 127/80 (96) 99 Room Air 03/10/17 13:26 36.9 135/79 03/10/17 13:23 80 14 03/10/17 13:23 80 14 96 03/10/17 13:21 139/82 03/10/17 13:18 71 4 03/10/17 13:18 68 4 95 03/10/17 13:16 135/77 03/10/17 13:13 58 3 100 03/10/17 13:13 60 3 03/10/17 13:11 155/85 03/10/17 13:08 75 9 03/10/17 13:08 75 9 100 03/10/17 13:06 147/84 03/10/17 13:03 75 16 100 03/10/17 13:03 75 16 03/10/17 13:01 138/83 03/10/17 12:58 77 15 03/10/17 12:58 77 15 100 03/10/17 12:56 141/85 03/10/17 12:54 36.2 86 16 154/85 100 Mask 6 03/10/17 12:53 83 12 03/10/17 12:53 83 12 100 03/10/17 09:06 36.6 74 16 106/73 (84) 95 Room Air Notes Mental Status: alert / awake / arousable, participated in evaluation Pt Amnestic to Procedure: Yes Nausea / Vomiting: adequately controlled Pain: adequately controlled Airway Patency, RR, SpO2: stable & adequate BP & HR: stable & adequate Hydration State: stable & adequate Anesthetic Complications: no major complications apparent
== END | disposition home or self-care (01) ==
LOC: X.SURG 08:48
PROVIDERS: ATTEND Otolaryngology
DX: J32.9 Chronic sinusitis, unspecified (principal); J34.2 Deviated nasal septum; Z90.710 Acquired absence of both cervix and uterus; Z96.659 Presence of unspecified artificial knee joint; Z90.722 Acquired absence of ovaries, bilateral; Z90.79 Acquired absence of other genital organ(s)